=== PATIENT | male | born 1995 | race African-American/Black ===

== ENCOUNTER 2022-11-17 08:35 | Inpatient (IN) ==
[2022-11-17] MEDS ORDERED: MULTI-VITAMIN INFUSION 10 ML, THIAMINE HCL 100 MG, FOLIC ACID 1 MG in SODIUM CHLORIDE 0... IV ONE (09:10)
[2022-11-17] MEDS ORDERED: LORazepam 2 MG/1 ML VIAL IV STA ×4 (09:10→12:35)
[2022-11-17] MEDS ORDERED: THIAMINE HCL 200 MG in SODIUM CHLORIDE 0.9% 50 ML IV STA (09:15)
--- NOTE | 2022-11-17 09:27 | Emergency Department Note ---
Impression & Plan Isopropyl alcohol poisoning, Alcohol withdrawal, Delirium tremens, Closed fracture nasal bone, Laceration of lip, Laceration of elbow, right ED Provider Note NAME: JASON MCARTHUR AGE: 27 SEX: M ARRIVES VIA: Ambulance INFORMANT: Patient ED PROVIDER(S): Onofre Florentino MD CHIEF COMPLAINT: AMS PLAN: Disposition: Admit MEDICAL DECISION MAKING: The patient is a 27-year-old gentleman with a past medical history of anxiety/depression and prior suicide attempts remotely, history of alcohol abuse/dependence presents to the emergency department via EMS and then accom panied by his mother for evaluation of altered mental status this morning where they found him confused walking without any clothes with evidence of facial trauma. They report they did witness him fall to the ground and had shaking with drooling and was not responding initially. They report that he lost his job in September and up until that time had been known to drink alcohol heavily and frequently. He had subsequently moved in with his parents over the holidays and because of the holidays feel he probably had access to alcohol. They admit that since the holidays have ended he may no longer have access to alcohol. The mother did note that she found a bottle of rubbing alcohol in his room on the floor. When the patient was asked in the room if he drank rubbing alcohol he replied "probably". He would not answer questions of why he would have done this or if it was to hurt/kill himself versus keep withdrawal symptoms at bay. On arrival the patient is alert to voice with some inattention but can be redirected and will follow commands. He is afebrile with heart in the 90s and vital signs otherwise stable. He has notable facial trauma with swelling and contusion of the right side of the face. No overt malocclusion. There is a 3 cm laceration of the lateral aspect of the upper right lip that is not through and through. He is moving all extremities equally. He does have a 1 cm superficial laceration of the lower posterior right elbow. No surrounding edema or deformity. He does exhibits disconjugate gaze. As the patient was being evaluated he was noticed to have increasing delirium and suspicion for alcohol withdrawal and was given 1mg and 2mg of Ativan. 130mg of Phenobarbital for severe/refractory withdrawal. Chest x-ray negative for acute cardiopulmonary process. CT of the head negative for acute traumatic injury. CT of the face notes a right nasal bone fracture and otherwise no additional traumatic findings. WBC 18K nonspecific without significant left shift. H/H and platelets within normal limits. VBG is unremarkable, within normal limits. Chemistry without metabolic acidosis with normal anion gap of 10 and bicarbonate of 23. Osmolality was noted to be 335 with osmolar gap calculated to be 50 consistent with suspected isopropyl alcohol overdose. CPK within normal limits. High- sensitivity troponin 2.4. Lipase within normal limits. APAP and salicylates were undetectable. Medical alcohol was undetectable. Case was reviewed with the [facility] and agrees with treatment thus far and supportive care. Given the patient's normal anion gap without metabolic acidosis no indication for empiric treatment for possible methanol or ethylene glycol ingestion as patient's presentation is consistent with isolated isopropyl overdose. Of note, appreciate case management assistance who met with the patient's mother and expressed concern for the patient's safety and recent frequent comments of suicidal ideation with a history of suicide attempt in the past. Given the patient would not explain why he ingested isopropyl alcohol in the setting of his prior mental health concerns once the patient is medically cleared he will require more thorough psychiatric evaluation. 302 petition was documented. Case was discussed with Darin Allen, with Dr. Justen martinez who will evaluate the patient for admission. Triage Nursing notes reviewed and agree them. Prior medical records reviewed Vital Signs: reviewed Differential diagnosis: Overdose, toxicologic, infection, hypoglycemia, electrolyte abnormalities, cardiac sources, intracerebral event, neurologic, trauma, as well as other pathologies. ER treatment provided: See below. Diagnostics interpreted by me: ECG: Sinus tachycardia, 124 bpm, no ectopy, no overt ST elevation or depression, QTC 462, QRS 84. Cardiac Monitoring: An order for continuous cardiac monitoring was placed and demonstrated sinus tachycardia, 124 bpm, no ectopy. Laboratory studies: See below Imaging studies: See below Consultation(s): Poison Control Center Case was discussed with Darin Allen, with Dr. Justen martinez who will evaluate the patient for admission. HPI: The patient is a 27-year-old gentleman with a past medical history of anxiety/depression and prior suicide attempts remotely, history of alcohol abuse/dependence presents to the emergency department via EMS and then accompanied by his mother for evaluation of altered mental status this morning where they found him confused walking without any clothes with evidence of facial trauma. They report they did witness him fall to the ground and had shaking with drooling and was not responding initially. They report that he lost his job in September and up until that time had been known to drink alcohol heavily and frequently. He had subsequently moved in with his parents over the holidays and because of the holidays feel he probably had access to alcohol. They admit that since the holidays have ended he may no longer have access to alcohol. The mother did note that she found a bottle of rubbing alcohol in his room on the floor. When the patient was asked in the room if he drank rubbing alcohol he replied "probably". He would not answer questions of why he would have done this or if it was to hurt/kill himself versus keep withdrawal symptoms at bay. ROS: See above HPI for pertinent positives & negatives. A total of 10 systems reviewed and were otherwise negative. VITALS:See Below PHYSICAL EXAMINATION: GENERAL: Awake, alert, to voice. Somnolent-appearing. HENT: Normocephalic, Notable facial trauma with edema and contusion of the right side of the face. No overt malocclusion. 1.5 cm laceration of the lateral aspect of the upper right lip approaching marina border that is not through and through Oropharynx unremarkable. EYES: Normal conjunctiva. Sclera non-icteric. Bilateral nystagmus. Pupil midrange and reactive bilaterally. NECK: Supple. No nuchal rigidity. FROM. No JVD. RESPIRATORY: Clear to auscultation. CARDIAC: Regular rate, normal rhythm. Extremities warm and well perfused. Pulses equal. ABDOMEN: Soft, non-distended. No tenderness to palpation. No rebound or gua rding. No masses. RECTAL: Deferred. MUSCULOSKELETAL: Chest examination reveals no tenderness. The back is symmetrical on inspection without obvious abnormality. There is no CVA tenderness to palpation. No joint edema. LOWER EXTREMITIES: Calves are equal size bilaterally and non-tender. No edema. No discoloration. NEURO: Inattention but can be redirected and will follow commands. Moving all extremities equally. Disconjugate gaze. SKIN: No rash or jaundice noted. He does have a 1.25 cm laceration of the lower posterior right elbow. No surrounding edema or deformity. ED COURSE: Procedure: Laceration repair per YOU Bamat's documentation. Critical Care: I have personally spent greater than 75 minutes of critical care time in the direct management of this patient. This includes bedside care, interpretation of diagnostic studies, and testing, discussion with consultants, patient, and family members, and other required patient management activities. This 75 min utes is in excess of all separately billable procedures. Onofre Florentino MD Past Med/Surg History Medical History Alcohol abuse History of nicotine vaping History of tobacco abuse Insomnia Major depression, recurrent, chronic Seasonal allergic rhinitis Suicidal ideation Suicide attempt Surgical History Surgical history unknown Family History Other Family history non-contributory Social History Smoking Status: Current some day smoker Hx Alcohol Use: Yes Alcohol Intake Frequency: 4 or More x per/Week Preferred Language: Estonian Current Living Situation: Parent current occupational status: previously employed Feels Safe at Home: Yes Allergies Allergies Allergy/AdvReac Type Severity Reaction Status Date / Time shellfish derived Allergy Severe Anaphylaxis Verified 11/17/22 14:03 Home Meds Home Medications Medication Instructions Recorded Confirmed No Known Home Medications 11/17/22 11/17/22 Results & Data (ED) Vital Signs Vital Signs - 24 hr 11/17/22 08:31 11/17/22 08:47 11/17/22 08:47 Temperature 36.6 C Temperature Source Temporal Artery Scan Pulse Rate 93 H Pulse Rate [Apical] 99 H Pulse Rate from SpO2 Sensor Respiratory Rate 16 16 Blood Pressure 139/86 Blood Pressure [Left Arm] 139/86 Blood Pressure Mean 103 Blood Pressure Mean [Left Arm] 103 Pulse Oximetry 97 97 Oxygen Delivery Method Room Air Sepsis Recent Fever Within 48 Hours Yes Sepsis New/Unexplained Change in Mental Status N/A Sepsis Action Taken by Nursing No Action Required 11/17/22 08:40 11/17/22 08:45 11/17/22 09:00 Temperature Temperature Source Pulse Rate 124 H 120 H 96 H Pulse Rate [Apical] Pulse Rate from SpO2 Sensor 121 H 97 H Respiratory Rate 19 13 22 Blood Pressure Blood Pressure [Left Arm] Blood Pressure Mean Blood Pressure Mean [Left Arm] Pulse Oximetry 99 97 Oxygen Delivery Method Sepsis Recent Fever Within 48 Hours Sepsis New/Unexplained Change in Mental Status Sepsis Action Taken by Nursing 11/17/22 09:15 11/17/22 09:46 11/17/22 10:00 Temperature Temperature Source Pulse Rate 135 H 115 H Pulse Rate [Apical] Pulse Rate from SpO2 Sensor 137 H 108 H 116 H Respiratory Rate 14 16 Blood Pressure Blood Pressure [Left Arm] Blood Pressure Mean Blood Pressure Mean [Left Arm] Pulse Oximetry 99 97 97 Oxygen Delivery Method Sepsis Recent Fever Within 48 Hours Sepsis New/Unexplained Change in Mental Status Sepsis Action Taken by Nursing 11/17/22 10:12 11/17/22 10:12 11/17/22 10:15 Temperature Temperature Source Pulse Rate 117 H 113 H Pulse Rate [Apical] Pulse Rate from SpO2 Sensor 112 H Respiratory Rate 18 4 L Blood Pressure 120/74 Blood Pressure [Left Arm] Blood Pressure Mean 89 Blood Pressure Mean [Left Arm] Pulse Oximetry 97 Oxygen Delivery Method Sepsis Recent Fever Within 48 Hours Sepsis New/Unexplained Change in Mental Status Sepsis Action Taken by Nursing 11/17/22 10:45 11/17/22 11:00 11/17/22 11:00 Temperature Temperature Source Pulse Rate 117 H 117 H Pulse Rate [Apical] Pulse Rate from SpO2 Sensor 117 H 117 H Respiratory Rate 20 0 L Blood Pressure 113/54 L Blood Pressure [Left Arm] Blood Pressure Mean 73 Blood Pressure Mean [Left Arm] Pulse Oximetry 99 99 Oxygen Delivery Method Sepsis Recent Fever Within 48 Hours Sepsis New/Unexplained Change in Mental Status Sepsis Action Taken by Nursing 11/17/22 11:15 11/17/22 11:30 11/17/22 11:30 Temperature Temperature Source Pulse Rate 119 H 150 H Pulse Rate [Apical] Pulse Rate from SpO2 Sensor 118 H 118 H Respiratory Rate 0 L 22 Blood Pressure 111/70 Blood Pressure [Left Arm] Blood Pressure Mean 83 Blood Pressure Mean [Left Arm] Pulse Oximetry 100 95 Oxygen Delivery Method Sepsis Recent Fever Within 48 Hours Sepsis New/Unexplained Change in Mental Status Sepsis Action Taken by Nursing 11/17/22 11:34 11/17/22 11:34 11/17/22 11:36 Temperature Temperature Source Pulse Rate 164 H Pulse Rate [Apical] Pulse Rate from SpO2 Sensor 166 H Respiratory Rate 20 Blood Pressure 149/82 H 126/96 Blood Pressure [Left Arm] Blood Pressure Mean 104 106 Blood Pressure Mean [Left Arm] Pulse Oximetry 95 Oxygen Delivery Method Sepsis Recent Fever Within 48 Hours Sepsis New/Unexplained Change in Mental Status Sepsis Action Taken by Nursing 11/17/22 11:36 11/17/22 11:45 11/17/22 11:45 Temperature Temperature Source Pulse Rate 158 H 132 H Pulse Rate [Apical] Pulse Rate from SpO2 Sensor 158 H 133 H Respiratory Rate 22 26 H Blood Pressure 134/86 Blood Pressure [Left Arm] Blood Pressure Mean 102 Blood Pressure Mean [Left Arm] Pulse Oximetry 100 91 Oxygen Delivery Method Sepsis Recent Fever Within 48 Hours Sepsis New/Unexplained Change in Mental Status Sepsis Action Taken by Nursing Laboratory Data Attestation: I reviewed the patient's lab results. 11/17/22 09:00 11/17/22 09:00 Lab Results 11/17/22 11/17/22 11/17/22 Range/Units 09:00 09:00 09:00 WBC 18.04 H (4.8-10.8) K/ul RBC 4.77 (4.63-6.08) M/uL Hgb 15.3 (14.0-18.0) g/dl Hct 43.3 (40.1-51.0) % MCV 90.8 (80.0-100.0) fL MCH 32.1 (25.0-34.0) pg MCHC 35.3 (32.0-36.0) g/dL RDW Std Deviation 38.0 (36.4-46.3) fL RDW Coeff of Janie 11.4 L (11.5-14.5) % Plt Count 263 (130-400) K/uL MPV 10.5 (9.4-12.4) fL Immature Gran % (Auto) 0.5 % Neut % (Auto) 89.7 % Lymph % (Auto) 4.1 % Floyd % (Auto) 5.5 % Eos % (Auto) 0.0 % Baso % (Auto) 0.2 % Neut # (Auto) 16.17 H (1.4-6.5) K/uL Lymph # (Auto) 0.74 L (1.2-3.4) K/uL Floyd # (Auto) 1.00 H (0.24-0.82) K/uL Eos # (Auto) 0.00 (0-0.50) K/uL Baso # (Auto) 0.04 (0-0.2) K/uL Immature Gran # (Auto) 0.09 H (0.00-0.02) K/uL PT 11.7 (9.0-12.0) Seconds INR 1.1 (0.9-1.1) VBG pH (7.36-7.41) VBG pCO2 (38-50) mmHg VBG pO2 mmHg VBG HCO3 mmol/L VBG O2 Saturation % VBG Base Excess mEq/L Sodium 137 (136-145) mmol/L Potassium 3.4 L (3.5-5.1) mmol/L Chloride 104 (98-107) mmol/L Carbon Dioxide 23 (21-32) mmol/L Anion Gap 10 (3-11) BUN 10 (6-23) mg/dl Creatinine 0.88 (0.6-1.4) mg/dl Est Cr Clr Drug Dosing 96.1 ml/min Est GFR ( Amer) 137.4 ml/min Est GFR (Non-Af Amer) 118.6 ml/min BUN/Creatinine Ratio 11.4 (10-20) Glucose 136 H (70-99(Fasting)) mg/dl Osmolality (280-300) mOsm/kg Calcium 9.2 (8.5-10.1) mg/dl Magnesium 1.9 (1.7-2.4) mg/dl Total Bilirubin 0.3 (0.2-1.0) mg/dl AST 22 (13-39) U/L ALT 18 (7-52) U/L Alkaline Phosphatase 56 (34-104) U/L Total Creatine Kinase 117 (30-223) U/L Troponin I High Sens 2.4 (0-20) pg/ml Total Protein 7.6 (6.0-8.3) gm/dl Albumin 4.5 (3.4-5.0) gm/dl Globulin 3.1 (2.5-4.0) gm/dl Albumin/Globulin Ratio 1.5 (0.9-2) Lipase 49 (11-82) U/L Salicylates (3.0-30) mg/dl Acetaminophen (10-30) ug/ml Ethyl Alcohol mg/dL (<10.0) mg/dl 11/17/22 11/17/22 11/17/22 Range/Units 09:00 09:00 09:00 WBC (4.8-10.8) K/ul RBC (4.63-6.08) M/uL Hgb (14.0-18.0) g/dl Hct (40.1-51.0) % MCV (80.0-100.0) fL MCH (25.0-34.0) pg MCHC (32.0-36.0) g/dL RDW Std Deviation (36.4-46.3) fL RDW Coeff of Janie (11.5-14.5) % Plt Count (130-400) K/uL MPV (9.4-12.4) fL Immature Gran % (Auto) % Neut % (Auto) % Lymph % (Auto) % Floyd % (Auto) % Eos % (Auto) % Baso % (Auto) % Neut # (Auto) (1.4-6.5) K/uL Lymph # (Auto) (1.2-3.4) K/uL Floyd # (Auto) (0.24-0.82) K/uL Eos # (Auto) (0-0.50) K/uL Baso # (Auto) (0-0.2) K/uL Immature Gran # (Auto) (0.00-0.02) K/uL PT (9.0-12.0) Seconds INR (0.9-1.1) VBG pH (7.36-7.41) VBG pCO2 (38-50) mmHg VBG pO2 mmHg VBG HCO3 mmol/L VBG O2 Saturation % VBG Base Excess mEq/L Sodium (136-145) mmol/L Potassium (3.5-5.1) mmol/L Chloride (98-107) mmol/L Carbon Dioxide (21-32) mmol/L Anion Gap (3-11) BUN (6-23) mg/dl Creatinine (0.6-1.4) mg/dl Est Cr Clr Drug Dosing ml/min Est GFR ( Amer) ml/min Est GFR (Non-Af Amer) ml/min BUN/Creatinine Ratio (10-20) Glucose (70-99(Fasting)) mg/dl Osmolality 335 H (280-300) mOsm/kg Calcium (8.5-10.1) mg/dl Magnesium (1.7-2.4) mg/dl Total Bilirubin (0.2-1.0) mg/dl AST (13-39) U/L ALT (7-52) U/L Alkaline Phosphatase (34-104) U/L Total Creatine Kinase (30-223) U/L Troponin I High Sens (0-20) pg/ml Total Protein (6.0-8.3) gm/dl Albumin (3.4-5.0) gm/dl Globulin (2.5-4.0) gm/dl Albumin/Globulin Ratio (0.9-2) Lipase (11-82) U/L Salicylates < 3.0 L (3.0-30) mg/dl Acetaminophen < 3 L (10-30) ug/ml Ethyl Alcohol mg/dL < 10.0 (<10.0) mg/dl 11/17/22 Range/Units 10:09 WBC (4.8-10.8) K/ul RBC (4.63-6.08) M/uL Hgb (14.0-18.0) g/dl Hct (40.1-51.0) % MCV (80.0-100.0) fL MCH (25.0-34.0) pg MCHC (32.0-36.0) g/dL RDW Std Deviation (36.4-46.3) fL RDW Coeff of Janie (11.5-14.5) % Plt Count (130-400) K/uL MPV (9.4-12.4) fL Immature Gran % (Auto) % Neut % (Auto) % Lymph % (Auto) % Floyd % (Auto) % Eos % (Auto) % Baso % (Auto) % Neut # (Auto) (1.4-6.5) K/uL Lymph # (Auto) (1.2-3.4) K/uL Floyd # (Auto) (0.24-0.82) K/uL Eos # (Auto) (0-0.50) K/uL Baso # (Auto) (0-0.2) K/uL Immature Gran # (Auto) (0.00-0.02) K/uL PT (9.0-12.0) Seconds INR (0.9-1.1) VBG pH 7.38 (7.36-7.41) VBG pCO2 41 (38-50) mmHg VBG pO2 60 mmHg VBG HCO3 24 mmol/L VBG O2 Saturation 90.7 % VBG Base Excess -0.8 mEq/L Sodium (136-145) mmol/L Potassium (3.5-5.1) mmol/L Chloride (98-107) mmol/L Carbon Dioxide (21-32) mmol/L Anion Gap (3-11) BUN (6-23) mg/dl Creatinine (0.6-1.4) mg/dl Est Cr Clr Drug Dosing ml/min Est GFR ( Amer) ml/min Est GFR (Non-Af Amer) ml/min BUN/Creatinine Ratio (10-20) Glucose (70-99(Fasting)) mg/dl Osmolality (280-300) mOsm/kg Calcium (8.5-10.1) mg/dl Magnesium (1.7-2.4) mg/dl Total Bilirubin (0.2-1.0) mg/dl AST (13-39) U/L ALT (7-52) U/L Alkaline Phosphatase (34-104) U/L Total Creatine Kinase (30-223) U/L Troponin I High Sens (0-20) pg/ml Total Protein (6.0-8.3) gm/dl Albumin (3.4-5.0) gm/dl Globulin (2.5-4.0) gm/dl Albumin/Globulin Ratio (0.9-2) Lipase (11-82) U/L Salicylates (3.0-30) mg/dl Acetaminophen (10-30) ug/ml Ethyl Alcohol mg/dL (<10.0) mg/dl Administered Medications Parenteral Electrolytes (Normosol-R) 1,000 mls @ 100 mls/hr IV .Q10H LUCIE Stop: 12/17/22 15:59 Last Admin: 11/17/22 16:32 Dose: 100 mls/hr Documented By: WRS Famotidine 20 mg/ Syringe 5 mls @ 2.5 mls/min IV Q12 LUCIE Stop: 12/17/22 20:59 Last Admin: 11/17/22 21:42 Dose: 2.5 mls/min Documented By: TP Discontinued Medications Diphtheria/Pertussis/Tetanus Vacc (Diphtheria/Tetanus/Pertussis 0.5 Ml Syr/Vial) 0.5 ml IM .ONCE ONE Stop: 11/17/22 11:16 Last Admin: 11/17/22 12:21 Dose: 0.5 ml Documented By: SNEHA Multivitamins 10 ml/ Thiamine HCl 100 mg/ Folic Acid 1 mg/Sodium Chloride 1,011.2 mls @ 1,011.2 mls/hr IV .Q1H ONE Stop: 11/17/22 10:09 Last Infusion: 11/17/22 11:45 Dose: 0 mls/hr Documented By: Admin: 11/17/22 10:13 Dose: 1,011.2 mls/hr Documented By: ANDRWE Thiamine HCl 200 mg/ Sodium (Chloride) 52 mls @ 208 mls/hr IV NOW STA Stop: 11/17/22 09:16 Last Infusion: 11/17/22 12:57 Dose: 0 mls/hr Documented By: Admin: 11/17/22 12:37 Dose: 208 mls/hr Documented By: SNEHA Potassium Acetate (Potassium Acetate/Nss) 10 meq in 105 mls @ 105 mls/hr IV Q1H LUCIE Stop: 11/17/22 14:44 Last Admin: 11/17/22 16:18 Dose: Not Given Documented By: IGNACIA Sodium Chloride (Nss 1000ml) 1,000 mls @ 999 mls/hr IV .Q1H1M LUCIE Stop: 11/17/22 13:45 Last Infusion: 11/17/22 15:23 Dose: 0 mls/hr Documented By: Admin: 11/17/22 14:22 Dose: 999 mls/hr Documented By: SNEHA Lidocaine HCl (Xylocaine 1%/Sod Bicarb 20 Ml Vial) 20 ml INFIL NOW ONE Stop: 11/17/22 11:16 Last Admin: 11/17/22 12:21 Dose: 20 ml Documented By: SNEHA Lorazepam (Lorazepam 2 Mg/1 Ml Vial) 1 mg IV NOW STA Stop: 11/17/22 09:11 Last Admin: 11/17/22 09:45 Dose: 1 mg Documented By: AGUEDA Lorazepam (Lorazepam 2 Mg/1 Ml Vial) 2 mg IV NOW STA Stop: 11/17/22 10:15 Last Admin: 11/17/22 10:25 Dose: 2 mg Documented By: AGUEDA Lorazepam (Lorazepam 2 Mg/1 Ml Vial) 2 mg IV NOW STA Stop: 11/17/22 10:24 Last Admin: 11/17/22 11:40 Dose: Not Given Documented By: AGUEDA Lorazepam (Lorazepam 2 Mg/1 Ml Vial) 1 mg IV ONE PRN; Protocol PRN Reason: EtoH Withdrawal AWSS 6,7,8,9,10 Last Admin: 11/17/22 11:40 Dose: 1 mg Documented By: SNEHA Lorazepam (Lorazepam 2 Mg/1 Ml Vial) Confirm Administered Dose 2 mg .ROUTE .STK- MED ONE Stop: 11/17/22 12:31 Last Admin: 11/17/22 12:47 Dose: Not Given Documented By: SNEHA Lorazepam (Lorazepam 2 Mg/1 Ml Vial) 2 mg IV NOW STA Stop: 11/17/22 12:36 Last Admin: 11/17/22 16:06 Dose: Not Given Documented By: IGNACIA Phenobarbital Sodium (Phenobarbital Sodium 65 Mg/Ml Vial) 130 mg IV NOW STA Stop: 11/17/22 12:29 Last Admin: 11/17/22 16:06 Dose: Not Given Documented By: IGNACIA Imaging Data Radiologist's Impression: Chest X-Ray 11/17/22 09:10 XR chest 1V portable CLINICAL HISTORY: overdose COMPARISON STUDY: No previous studies for comparison. FINDINGS: Exam is compromised given difficulty positioning. Lung volumes are normal. Lungs are clear. There is no pneumothorax or pleural effusion. Cardiac size is normal. Mediastinal contours are normal. There is no evidence for pulmonary edema. IMPRESSION: No acute cardiopulmonary findings. ACT 112: Negative or not required by law. Electronically signed by: Lavon Clark M.D. 11/17/2022 10:[address] 11/17/22 09:14 CT OF THE CERVICAL SPINE WITHOUT CONTRAST CLINICAL HISTORY: AMS pain COMPARISON STUDY: No previous studies for comparison. TECHNIQUE: Helical axial images of the cervical spine were obtained without IV contrast. Sagittal and coronal reconstructions were viewed. Automated exposure control was utilized for the study. A dose lowering technique was utilized adhering to the principles of ALARA. FINDINGS: Alignment of the cervical spine is anatomic. Vertebral body heights are maintained. No acute cervical spine fracture or subluxation is present. There is no prevertebral edema. Facet joints are intact. IMPRESSION: No acute cervical spine fracture or subluxation. ACT 112: Negative or not required by law. Electronically signed by: Lavon Clark M.D. 11/17/2022 11:[address] 11/17/22 09:14 CT OF THE HEAD WITHOUT CONTRAST CLINICAL HISTORY: Altered mental status. COMPARISON STUDY: No previous studies for comparison. TECHNIQUE: Helical axial images of the head were obtained without IV contrast. Automated exposure control was utilized for the study. A dose lowering t echnique was utilized adhering to the principles of ALARA. FINDINGS: No acute intracranial hemorrhage, midline shift or mass effect is present. The ventricular system is unremarkable. The basal cisterns are patent. No extra-axial collections are present. There are no findings to suggest acute dural sinus thrombosis or acute territorial infarct. No significant calvarial abnormalities are present. Visualized portions of the sinuses and mastoid air cells are clear. Right nasal contusion is present. There is an acute fracture of the right nasal bone. This is better depicted on the maxillofacial CT. IMPRESSION: 1. No acute intracranial findings. 2. No acute calvarial fracture. 3. Right facial contusion. Acute right nasal bone fracture. ACT 112: Negative or not required by law. Electronically signed by: Lavon Clark M.D. 11/17/2022 11:[address] 11/17/22 09:15 CT facial bones wo con CLINICAL HISTORY: trauma TECHNIQUE: Multidetector row helical CT of the maxillofacial bones was performed without administration of intravenous contrast, and processed with bone and soft tissue algorithms. Coronal and sagittal reformations were obtained. Automated dose lowering techniques and/or adjustment according to patient size were utilized for this exam. CT DOSE: 1248.17 mGy.cm Comparison: None available at the time of this dictation. FINDINGS: There is an acute fracture of the right nasal bone. Soft tissue swelling is seen. The mandible is intact. The temporomandibular joints are anatomically aligned. Pterygoid plates are intact. Zygomatic arches are intact. The globes are normal and symmetric, without proptosis, obvious disruption or lens dislocation. There is no orbital radiopaque foreign body. The orbital nova are intact. The retrobulbar fat is without evidence of disruption. Extraocular muscles are normal and symmetric. Optic nerve sheath complexes are normal in course and caliber. There is a fracture of the right nasal bone with surrounding soft tissue swelling. IMPRESSION: No acute facial fracture. ACT 112: Negative or not required by law. Electronically signed by: Ian Thomas M.D. 11/17/2022 11:10 AM Discharge Plan Visit Data Chief Complaint: Confusion ED Provider: Onofre Florentino Discharge Problem: Isopropyl alcohol poisoning, Alcohol withdrawal, Delirium tremens, Closed fracture nasal bone, Laceration of lip, Laceration of elbow, right Patient Disposition: Admitted As Inpatient Discharge Instructions Interventions: ED Discharge Assessment Last Done: 11/17/22 14:47
[2022-11-17 09:28] LABS: Basophils # (auto) 0.04 K/uL (0-0.2); Basophils % (auto) 0.2 %; Hematocrit (blood only) 43.3 % (40.1-51.0); Hemoglobin 15.3 g/dl (14.0-18.0); Immature Granulocytes # (auto) 0.09 K/uL (0.00-0.02); Immature Granulocytes % (auto) 0.5 %; Lymphocytes # (auto) 0.74 K/uL (1.2-3.4); Lymphocytes % (auto) 4.1 %; Mean Corpuscular Hemoglobin 32.1 pg (25.0-34.0); Mean Corpuscular Hgb Conc 35.3 g/dL (32.0-36.0); Mean Corpuscular Volume 90.8 fL (80.0-100.0); Mean Platelet Volume 10.5 fL (9.4-12.4); Monocytes % (auto) 5.5 %; Neutrophils # (auto) 16.17 K/uL (1.4-6.5); Neutrophils % (auto) 89.7 %; Platelet Count 263 K/uL (130-400); RDW Coefficient of Variation 11.4 % (11.5-14.5); Red Blood Count 4.77 M/uL (4.63-6.08); White Blood Count 18.04 K/ul (4.8-10.8)
[2022-11-17 09:41] LABS: INR 1.1 (0.9-1.1); Prothrombin Time 11.7 Seconds (9.0-12.0)
[2022-11-17 09:53] LABS: Acetaminophen < 3 ug/ml (10-30); Salicylate < 3.0 mg/dl (3.0-30)
[2022-11-17 10:10] LABS: Albumin Globulin Ratio 1.5 (0.9-2); Albumin Level 4.5 gm/dl (3.4-5.0); BUN Creatinine Ratio 11.4 (10-20); Bilirubin,Total 0.3 mg/dl (0.2-1.0); Calcium 9.2 mg/dl (8.5-10.1); Creatinine Clr Calc Pharmacy 96.1 ml/min; Est GFR (African American) 137.4 ml/min; Est GFR (Non-African American) 118.6 ml/min; Globulin 3.1 gm/dl (2.5-4.0); Magnesium 1.9 mg/dl (1.7-2.4); Potassium 3.4 mmol/L (3.5-5.1); Total Protein 7.6 gm/dl (6.0-8.3)
[2022-11-17 10:11] LABS: Troponin I High Sensitivity 2.4 pg/ml (0-20)
--- NOTE | 2022-11-17 10:11 | XRay Report ---
XR chest 1V portable CLINICAL HISTORY: overdose COMPARISON STUDY: No previous studies for comparison. FINDINGS: Exam is compromised given difficulty positioning. Lung volumes are normal. Lungs are clear. There is no pneumothorax or pleural effusion. Cardiac size is normal. Mediastinal contours are ted l. There is no evidence for pulmonary edema. IMPRESSION: No acute cardiopulmonary findings. ACT 112: Negative or not required by law. Electronically signed by: Lavon Clark M.D. 11/17/2022 10:10 AM
[2022-11-17 10:27] LABS: Base Excess VBG -0.8 mEq/L; HCO3 VBG 24 mmol/L; Oxygen Saturation VBG 90.7 %; PCO2 VBG 41 mmHg (38-50); PO2 VBG 60 mmHg; pH VBG 7.38 (7.36-7.41)
--- NOTE | 2022-11-17 11:03 | CT Scan Report ---
CT OF THE HEAD WITHOUT CONTRAST CLINICAL HISTORY: Altered mental status. COMPARISON STUDY: No previous studies for comparison. TECHNIQUE: Helical axial images of the head were obtained without IV contrast. Automated exposure con trol was utilized for the study. A dose lowering technique was utilized adhering to the principles o f ALARA. FINDINGS: No acute intracranial hemorrhage, midline shift or mass effect is present. The ventricular system is unremarkable. The basal cisterns are patent. No extra-axial collections are present. There are no findings to suggest acute dural sinus thrombosis or acute territorial infarct. No significant calvarial abnormalities are present. Visualized portions of the sinuses and mastoid air cells are ender ar. Right nasal contusion is present. There is an acute fracture of the right nasal bone. This is bet ter depicted on the maxillofacial CT. IMPRESSION: 1. No acute intracranial findings. 2. No acute calvarial fracture. 3. Right facial contusion. Acute right nasal bone fracture. ACT 112: Negative or not required by law. Electronically signed by: Lavon Clark M.D. 11/17/2022 11:02 AM
--- NOTE | 2022-11-17 11:11 | CT Scan Report ---
CT facial bones wo con CLINICAL HISTORY: trauma TECHNIQUE: Multidetector row helical CT of the maxillofacial bones was performed without administrati on of intravenous contrast, and processed with bone and soft tissue algorithms. Coronal and sagittal reformations were obtained. Automated dose lowering techniques and/or adjustment according to patient size were utilized for this exam. CT DOSE: 1248.17 mGy.cm Comparison: None available at the time of this dictation. FINDINGS: There is an acute fracture of the right nasal bone. Soft tissue swelling is seen. The mandible is int act. The temporomandibular joints are anatomically aligned. Pterygoid plates are intact. Zygomatic a rches are intact. The globes are normal and symmetric, without proptosis, obvious disruption or lens dislocation. Ther e is no orbital radiopaque foreign body. The orbital nova are intact. The retrobulbar fat is without evidence of disruption. Extraocular muscles are normal and symmetric. Optic nerve sheath complexes are normal in course and caliber. There is a fracture of the right nasal bone with surrounding soft tissue swelling. IMPRESSION: No acute facial fracture. ACT 112: Negative or not required by law. Electronically signed by: Ian Thomas M.D. 11/17/2022 11:10 AM
--- NOTE | 2022-11-17 11:12 | CT Scan Report ---
CT OF THE CERVICAL SPINE WITHOUT CONTRAST CLINICAL HISTORY: AMS pain COMPARISON STUDY: No previous studies for comparison. TECHNIQUE: Helical axial images of the cervical spine were obtained without IV contrast. Sagittal a nd coronal reconstructions were viewed. Automated exposure control was utilized for the study. A do se lowering technique was utilized adhering to the principles of ALARA. FINDINGS: Alignment of the cervical spine is anatomic. Vertebral body heights are maintained. No acut e cervical spine fracture or subluxation is present. There is no prevertebral edema. Facet joints are intact. IMPRESSION: No acute cervical spine fracture or subluxation. ACT 112: Negative or not required by law. Electronically signed by: Lavon Clark M.D. 11/17/2022 11:11 AM
[2022-11-17] MEDS ORDERED: DIPHTHERIA/TETANUS/PERTUSSIS 0.5mL SYR/VIAL (Age 7+yrs) IM ONE (11:15)
[2022-11-17] MEDS ORDERED: XYLOCAINE 1%/SOD BICARB 20 ML VIAL INFIL ONE (11:15)
[2022-11-17] MEDS ORDERED: LORazepam 2 MG/1 ML VIAL IV PRN ×4 (11:21→15:49)
[2022-11-17] MEDS ORDERED: MAGNESIUM HYDROXIDE SUSP 30 ML UDC PO PRN (11:48)
[2022-11-17] MEDS ORDERED: ALUMINUM/MAGNESIUM SUSP 30 ML UDC PO PRN (11:48)
[2022-11-17] MEDS ORDERED: POLYETHYLENE (MIRALAX) 17 GM PACK PO PRN (11:48)
[2022-11-17] MEDS ORDERED: ONDANSETRON INJ 2 MG/ML 2 ML VIAL IV PRN (11:48)
[2022-11-17] MEDS ORDERED: PHENobarbital sodium 65 MG/ML VIAL IV STA ×2 (11:50→12:28)
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
[2022-11-17] MEDS ORDERED: LORazepam 2 MG/1 ML VIAL ONE (12:30)
--- NOTE | 2022-11-17 12:40 | Emergency Department Note ---
ED Visit Note Patient was seen and evaluated by Dr. Florentino. I was asked to evaluate the patient's right upper lip wound and right arm wound. Patient at this time is experiencing a state of altered mental status. Implied consent utilized. Patient does have 2 lacerations which would benefit from repair. The first of which is overlying the right upper lip in the horizontal plane that is overlying the vermilion border. It is approximately 1.5 cm in length. It is not communicating with the intraoral mucosa. This does involve the dry mucosa and integument just superior to the vermilion. No intraoral component as noted above. 2 cc of 1% lidocaine without epinephrine was used to anesthetize the right upper lip laceration. The wound was cleansed and prepped in the typical sterile fashion utilizing normal saline and ChloraPrep noting his allergy to shellfish in the event that iodine could also be a potential allergy as he is not able to confirm given his current mental state. The wound was sterilely draped. Once proper anesthetization was established, the wound was further examined and demonstrated repairable laceration without foreign body or deep structure injury. The wound was copiously irrigated with normal saline. The wound was closed using 5 simple, 6-0 nylon sutures with the wound edges being well approximated. Patient tolerated the procedure well. No complications were met. The wound was cleansed and dressed with a Bacitracin dressing. Attention was then turned to the right arm wound. The laceration is on the right upper extremity on the medial aspect of the right elbow region. Gloves were changed into a new set of sterile gloves. A new suture material was obtained. Area was sterilely draped. The region was anesthetized utilizing 3 cc of 1% buffered lidocaine without epinephrine. The wound was cleansed and prepped in the typical sterile fashion utilizing normal saline and ChloraPrep noting his allergy to shellfish in the event that iodine could also be a potential allergy as he is unable to confirm given his current mental state. Wound was sterilely draped. Once proper anesthetization was established, the w ound was further examined and demonstrated repairable laceration without foreign body or deep structure injury. No evidence of bony involvement. Wound measured approximately 1.25 cm in length. The wound was copiously irrigated with normal saline. The wound was closed utilizing 4, 4-0 nylon sutures with the wound edges being well approximated. No complications were met. The wound was cleansed and dressed with a bacitracin dressing. I recommend suture removal for the lip in 7 days. I recommend removal of sutures on the right upper extremity in about 12 days. Please refer to further documentation regarding his stay. .
[2022-11-17] MEDS ORDERED: SODIUM CHLORIDE 0.9% 1000ML 1,000 ML IV SCH (12:45)
[2022-11-17] MEDS ORDERED: POTASSIUM ACETATE/NSS 10 MEQ/105 ML BAG IV SCH (12:45)
[2022-11-17 13:52] LABS: Appearance Urine Clear (Clear); Bilirubin Urine Negative (Negative); Blood Urine Negative (Negative); Color Urine Yellow; Glucose Urine UA Negative (Negative); Ketones Urine Negative (Negative); Leukocyte Esterase Urine Negative (Negative); Nitrite Urine Negative (Negative); Protein Urine Negative (Negative); Specific Gravity Urine 1.008 (1.000-1.030); Urobilinogen Urine Negative (Negative)
--- NOTE | 2022-11-17 13:53 | Critical Care Consultation ---
Date of Consultation November 17, 2022 Assessment & Plan (1) Isopropyl alcohol poisoning: Reason Critically Ill: 27-year-old male presenting with altered mental status and possible seizure in the setting of likely isopropyl alcohol intoxication requiring close hemodynamic monitoring, laboratory evaluation, and neurological evaluations in the setting of atypical alcohol overdose. NEURO - * CAM ICU: POSITIVE * Altered Mental Status: * Likely 2/2 Isopropyl EtOH overdose - patient found with mother's bottle of rubbing alcohol she uses for crafting. He admitted to drinking a "small bit." Reports he drank it to attempt to get drunk. Denies using any other medicaions or ingestions otherwise. * Osmolar gap calculated at 50.0 mOsm/kg - suggestive of significant osmolar gap. This could certainly be related to recent Isopropyl EtOH use. Thankfully w/o other significant laboratory deragements. * CT Head/C-spine w/o acute findings. * Poison control contacted. Recommend conservative management. * Received several doses of IV Ativan 2/2 agitation. * Concerns initially for Delirium tremens in the setting of known heavy EtOH abuse. * Will add AWSS scale w/ Ativan for now. * Consider Precedex if management of agitation becomes an issue w/ Ativan alone. * Seizure precautions. * This could likely represent an acute encephalopathy in the setting of atypical EtOH overdose. Will see how he improves over the next several hour. PSYCH - * Multiple recent comments about suicidality. * Previous suicide attempt. * 302 petition on chart. * Will consult psych for inpatient placement when clinically appropriate. CARDIAC/VASCULAR - * Tachycardia: * In the setting of isopropyl EtoH overdose and agitation. * Rates improved when not agitated. * IVF for now. Not requiring rate control currently. * EKG: Sinus Tachycardia @ [address] elevations/T-wave changes noted. QTc 462 ms. Monitor on telemetry. RESPIRATORY - * No h/o pulmonary disease. * Saturating well on Room Air. GI/NUTRITION - * NPO while agitated * Prophylaxis: Famotidine RENAL/LYTES - * Hypokalemia: * Replace appropriately. * IVF: Normosol R @ 100 mL/hr - * No current concerns. * h/o Priapism * Avoid Trazodone ENDO - * No h/o DM or Thyroid Dz * BSGs per unit protocol. ISS --> gtt per unit policy. HEME - * Leukocytosis: * Likely 2/2 stress response w/ reported seizure like activity. ID - * No immediate concerns for infectious contribution at this time. LINES/IV ACCESS - * PIVs x2 DVT PROPHYLAXIS - * Hold for now w/ recent fall/facial trauma. Will see how he does with mental status over the next several hours. * SCDs I have personally spent 45 minutes of critical care time in the direct management of this patient. This is a life/limb threatening event. This includes time spent evaluating patient, direct bedside care, chart review, placing orders, interpretation of diagnostic studies, discussion with consultants, patient, and family members, as well as other required patient management activities. This time is exclusive of all separately billable procedures, and teaching time and separate from and in addition to any other critical care service time. Thank you for allowing us to participate in the care of this patient. Please refer to my attending physician's documentation for any further recommendations. (2) Altered mental status: (3) Suicidal ideation: (4) Closed fracture nasal bone: (5) Laceration of lip: (6) Laceration of elbow, right: Supervising Physician Co-Signing Physician Notes Patient seen and examined. EMR reviewed. Discussed with critical care nurse at bedside as well as interviewed the patient directly. Reviewed with critical care YOU and agree with assessment plan as noted. Patient was admitted to the ICU for follow-up of isopropyl alcohol ingestion and potential alcohol withdrawal. He is currently awake alert and conversant. He denies any suicidal ideation or homicidal ideation. He is hemodynamically stable. He denies any specific complaints currently. Will continue to observe on symptom dosed Ativan. No indication for Precedex and phenobarb or other adjuvants currently. Will require behavioral health evaluation once medically cleared, likely in a.m.. Patient did have an elevated white blood cell count of unclear etiology. Holding antibiotics unless the patient demonstrates evidence of fevers. He demonstrated no significant metabolic acidosis. Anticipate the patient can likely be dismissed from the ICU in the a.m. if he continues to do well. History of Present Illness Reason for Consultation: Isopropyl Alcohol Overdose, AMS Requesting Physician: CRISTINA Allen History of Present Illness Patient is a 27-year-old male with a significant past medical history of of anxiety, depression, suicidality with prior attempts, and alcohol abuse who presented to the emergency department today with concerns for likely isopropyl alcohol overdose. Mother reports the patient was acting off this morning and trashed the basement. She reports that it did not seem as though he was throwing things or smashing things in anger, but that he was falling all over. He was reportedly witnessed falling to the ground and shaking with drooling and an unresponsive state. Mother found a bottle of isopropyl alcohol in the gema nt's room. She reports that she had been using this for crafting and noticed that it was missing on Wednesday. Patient drinks alcohol heavily and typically resorts to high percentage alcohol beers. She reports that he had been drinking heavily over the holidays in relationship to his recent termination from employment as well as with his family present for the holidays. She states that he had not drank beer in approximately 7 days as his brother and father were not available to help purchase of alcohol. Mother reports that patient makes regular comments about how he is plotting how he would attempt to kill himself again.Mother reports that the only medications available in the house to him would be losartan as well as [id number] medications including aspirin, Tylenol, and acetaminophen. She reports that she briefly looked at the pill bottles and did not notice anything significantly out of place. Mother reports that there was no other access to any other forms of alcohol. She does not feel as though he had consumed any other agents. Upon evaluation in the emergency department, the patient has received multiple doses of Ativan secondary to agitation. He has a moderate leukocytosis which is likely demargination in the setting of stress. Mild hypokalemia. Mild elevation of serum awesome's. Tylenol and aspirin levels not elevated. Serum alcohol levels not elevated. Upon evaluation in the emergency department, the patient is somnolent and sleeping. He responds to stimuli, but falls back to sleep briefly. Patient admits to drinking "a small amount" of rubbing alcohol. He denies taking any other medications or drinking any other substances in an attempt to harm himself. Allergies Allergy/AdvReac Type Severity Reaction Status Date / Time shellfish derived Allergy Severe Anaphylaxis Verified 11/17/22 14:03 Home Medications Medication Instructions Recorded Confirmed Type No Known Home Medications 11/17/22 11/17/22 History Patient History Medical History (Updated 11/17/22 @ 15:52 by Barbra Campuzano DO) Alcohol abuse History of nicotine vaping History of tobacco abuse Insomnia Major depression, recurrent, chronic Seasonal allergic rhinitis Suicidal ideation Suicide attempt Surgical History (Updated 11/17/22 @ 15:52 by Barbra Campuzano DO) Surgical history unknown Family History Other Family history non-contributory Social History (Updated 11/17/22 @ 15:52 by Barbra Campuzano DO) Smoking Status: Current some day smoker Hx Alcohol Use: Yes Alcohol Intake Frequency: 4 or More x per/Week Preferred Language: Palestinian Communication Ability Comment: Unable to answer Current Living Situation: Parent current occupational status: previously employed Feels Safe at Home: Yes Assistive Devices Comment: Unable to answer Review of Systems Review of Systems: Limited secondary to patient's current mental status Physical Exam Physical Exam: VITAL SIGNS - Vital signs and nursing notes were reviewed. GENERAL - 27-year-old male appearing his stated age. Communicates well with provider and answers questions appropriately. SKIN - Gross examination of the entire body surface demonstrates swelling and dried blood to the RIGHT side of the face/jaw. HEAD - Normocephalic. Facial swelling/dried blood as above. EYES - pupils appear equal bilaterally. Patient otherwise not cooperative with exam. EARS - No deformities of external structures noted on gross examination bilaterally. No hemotympanum present. No tympanic perforation noted. Handle of malleus, umbo, cone of light, pars tensa/flaccid all easily visualized. NOSE - Midline and without cyanosis. No epistaxis or clear watery discharge noted. Septum midline without deviation. No septal hematoma noted. MOUTH/OROPHARYNX - Without perioral cyanosis. Good dentition noted. NECK - No tenderness to palpation over the cervical spinous processes. No cervical paraspinal muscle tenderness noted. LUNGS - Chest wall symmetric without accessory muscle use, intercostals retractions, or central cyanosis. Normal vesicular breath sounds CTA B/L. No wheezes, rales, or rhonchi appreciated. CARDIAC - RRR with S1/S2. No murmur, rubs, or gallops appreciated. ABDOMEN - Abdominal contour flat without pulsations or visible masses. BS normoactive all four quadrants. No rebound tenderness or guarding noted. No tenderness, palpable masses, hepatosplenomegaly, or ascites noted. EXTREMITIES - No gross deformities noted of the extremities. Dressing noted to the RIGHT arm. +3/5 radial and dorsalis pedis pulses palpated throughout. NEUROLOGIC - No focal neurological deficits noted. Unable to fully assess secondary to mental status. PSYCH - Somnolent. Awakes with stimuli. Intermittent episodes of lucidity. Results & Data Results & Data ([facility]) Vital Signs (Past 12 Hours) Vital Signs Temp Pulse Pulse Resp BP BP Pulse Ox 11/17/22 11:45 132 H 26 H 91 11/17/22 11:45 134/86 11/17/22 11:36 158 H 22 100 11/17/22 11:36 126/96 11/17/22 11:34 164 H 20 95 11/17/22 11:34 149/82 H 11/17/22 11:30 150 H 22 95 11/17/22 11:30 111/70 11/17/22 11:15 119 H 0 L 100 11/17/22 11:00 117 H 0 L 99 11/17/22 11:00 113/54 L 11/17/22 10:45 117 H 20 99 11/17/22 10:15 113 H 4 L 97 11/17/22 10:12 120/74 11/17/22 10:12 117 H 18 11/17/22 10:00 115 H 16 97 11/17/22 09:46 97 11/17/22 09:15 135 H 14 99 11/17/22 09:00 96 H 22 97 11/17/22 08:45 120 H 13 99 11/17/22 08:40 124 H 19 11/17/22 08:47 99 H 16 139/86 97 11/17/22 08:47 11/17/22 08:31 36.6 C 93 H 16 139/86 97 O2 Del Method 11/17/22 11:45 11/17/22 11:45 11/17/22 11:36 11/17/22 11:36 11/17/22 11:34 11/17/22 11:34 11/17/22 11:30 11/17/22 11:30 11/17/22 11:15 11/17/22 11:00 11/17/22 11:00 11/17/22 10:45 11/17/22 10:15 11/17/22 10:12 11/17/22 10:12 11/17/22 10:00 11/17/22 09:46 11/17/22 09:15 11/17/22 09:00 11/17/22 08:45 11/17/22 08:40 11/17/22 08:47 11/17/22 08:47 Room Air 11/17/22 08:31 Coding Level of Care Code Critical Care 1st 30-74 mins Diagnoses Isopropyl alcohol poisoning T51.2X1A Altered mental status R41.82 Suicidal ideation R45.851 Closed fracture nasal bone S02.2XXA Laceration of lip S01.511A Laceration of elbow, right S51.011A Time Spent (min) 45
[2022-11-17 14:43] LABS: Amphetamines+Metham, Urine Neg (Neg); Barbiturates, Urine Neg (Neg); Benzodiazepine, Urine Neg (Neg); Cocaine, Urine Neg (Neg); MDMA (Ecstacy), Urine Neg (Neg); Methadone, Urine Neg (Neg); Opiate, Urine Neg (Neg); Phencyclidine, Urine Neg (Neg)
[2022-11-17] MEDS ORDERED: Ativan IV Alcohol Withdrawal--Active Protocol IV PRN (15:49)
[2022-11-17] MEDS ORDERED: FLUARIX QUADRIVALENT 0.5 ML SYR IM ONE (16:16)
[2022-11-17] MEDS: NORMOSOL-R 1,000 ML IV SCH (16:32)
--- NOTE | 2022-11-17 18:43 | Communication Note ---
Date of Service: November 17, 2022 6:30p I saw the patient again in the ICU this evening and touched base with the primary RN. The patient has not required any additional sedation since his arrival today. He is still confused but easy to reorient. He will awaken and HR may go up to the 130s-160s but then he will settle back down again and HR is now in the 80s. Vitals are otherwise normal. Condom cath in place for incontinence. Per RN, patient mother called and mentioned finding an empty bottle of Jody aspirin on the floor of his room. I contacted poison control with this information and they felt like with the osmolar gap without anion gap and a negative salicylate level this morning, additional labwork was not needed at this point. They felt this was the classic picture of an isopropyl alcohol poisoning and that he was just in withdrawal at this point. Updated the nurse and will continue supportive care overnight. Barbra Campuzano, DO
[2022-11-17] MEDS ORDERED: FAMOTIDINE 20 MG in SYRINGE 3 ML IV SCH (21:00)
[2022-11-18] MEDS: NORMOSOL-R 1,000 ML IV SCH (04:05)
[2022-11-18 05:29] LABS: Hematocrit (blood only) 35.4 % (40.1-51.0); Hemoglobin 12.3 g/dl (14.0-18.0); Mean Corpuscular Hemoglobin 31.9 pg (25.0-34.0); Mean Corpuscular Hgb Conc 34.7 g/dL (32.0-36.0); Mean Corpuscular Volume 91.9 fL (80.0-100.0); Mean Platelet Volume 10.2 fL (9.4-12.4); Platelet Count 213 K/uL (130-400); RDW Coefficient of Variation 11.6 % (11.5-14.5); RDW Standard Deviation 39.2 fL (36.4-46.3); Red Blood Count 3.85 M/uL (4.63-6.08); White Blood Count 9.79 K/ul (4.8-10.8)
[2022-11-18 05:36] LABS: BUN Creatinine Ratio 5.1 (10-20); Calcium 8.4 mg/dl (8.5-10.1); Creatinine Clr Calc Pharmacy 85.4 ml/min; Est GFR (African American) 121.3 ml/min; Est GFR (Non-African American) 104.7 ml/min; Potassium 3.5 mmol/L (3.5-5.1)
--- NOTE | 2022-11-18 07:53 | Critical Care Progress Note ---
Date of Service November 18, 2022 Assessment & Plan (1) Altered mental status: (2) Isopropyl alcohol poisoning: (3) Closed fracture nasal bone: (4) Laceration of lip: Plan Impression: 27-year-old male status post isopropyl alcohol ingestion. He initially had encephalopathy and altered mental status which is now resolved. No evidence of recurrent seizure activity. He is hemodynamically stable. Recommendations: 1. Isopropyl alcohol ingestion: Patient has likely metabolized all the isopropyl alcohol without significant sequelae. No additional clinical follow- up required. 2. Potential salicylate ingestion: Patient does not demonstrate any significant acid-base abnormalities. No additional follow-up required as well. 3. Questionable suicidal attempt: The patient denies suicidal ideation currently. He reportedly had expressed some suicidal ideation at some point t wallace during his evaluation in the emergency room. Patient is currently on a med hold. Behavioral health evaluation pending. The patient is medically stable at this point in time. He can transfer out of the ICU. Additional care per the hospitalist service. 4. Nasal fracture: The patient can follow-up with ENT in the outpatient setting. 5. Mild anemia: No evidence of acute blood loss. Continue to follow clinically. 6. CPK mildly elevated secondary to abrasions. No indication for additional evaluation or work-up at this point time. 7. In the patient will have his condom catheter discontinued. Increase activity to ad jaime.. Advance diet. Patient's critical care issues have resolved. He will be returned back to the care of the hospitalist service. Critical care signing off. Feel free to contact us with questions or concerns Admission and Anticipated Discharge Date Admission Date: November 17, 2022 Subjective Patient seen and examined. EMR reviewed. Discussed with critical care nurse at bedside as well as with patient. No acute events overnight. The patient has not required any additional benzodiazepines. No seizure activity. He denies any neurological complaints. No chest pain palpitations or shortness of breath. He denies nausea or v omiting. He has some soreness of his lip but otherwise no pain issues. Is not been tachycardic. He denies suicidal or homicidal ideation at this point time. Review of Systems Review of Systems: All systems reviewed & are unremarkable except as noted in Subjective Physical Exam Constitutional: WD/WN, vitals as above ENMT: Asymmetrical facial swelling on the right with some bruising. No orbital step-off. Neck: trachea midline, no thyromegaly Respiratory: normal respiratory effort, lungs clear to auscultation Cardiovascular: RRR, no murmur, no edema Gastrointestinal (Abdomen): normal bowel sounds, soft, nontender, no hepatosplenomegaly Musculoskeletal: Extremities: extremities normal to inspection Skin: no rashes, warm and dry Neurologic: Nonfocal exam Lymphatic: no cervical lymphadenopathy Results & Data Results & Data ([facility]) Vital Signs (Past 12 Hours) Vital Signs Pulse Resp BP Pulse Ox O2 Del Method 11/18/22 07:00 116 H 21 117/76 99 Room Air 11/18/22 06:45 79 17 102/56 L 96 Room Air 11/18/22 04:00 76 18 95 11/18/22 04:00 120/58 L 11/18/22 03:45 80 20 96 11/18/22 03:45 124/69 11/18/22 03:30 107/59 L 11/18/22 03:30 91 H 24 96 11/18/22 03:15 80 18 97 11/18/22 03:15 108/54 L 11/18/22 03:00 79 18 95 11/18/22 03:00 110/54 L 11/18/22 02:45 106/53 L 11/18/22 02:45 75 18 95 11/18/22 02:30 105/53 L 11/18/22 02:30 91 H 19 96 11/18/22 02:15 100/51 L 11/18/22 02:15 77 21 96 11/18/22 02:00 130 H 14 11/18/22 02:00 101/61 11/18/22 01:45 99 H 22 100 11/18/22 01:45 118/67 11/18/22 01:30 113/60 11/18/22 01:30 87 19 100 11/18/22 01:16 85 31 H 100 11/18/22 01:16 136/72 11/18/22 01:00 104 H 24 97 11/18/22 01:00 125/67 11/18/22 00:45 112/74 11/18/22 00:45 132 H 17 97 11/18/22 00:30 104 H 15 100 11/18/22 00:30 108/48 L 11/18/22 00:15 94/49 L 11/18/22 00:15 88 19 99 11/18/22 00:00 88 19 99 11/18/22 00:00 95/51 L 11/17/22 23:45 97/52 L 11/17/22 23:45 92 H 20 100 11/17/22 23:30 88 20 100 11/17/22 23:30 110/61 11/17/22 23:15 88 20 100 11/17/22 23:15 106/59 L 11/17/22 23:00 93 H 20 99 11/17/22 23:00 100/47 L 11/17/22 22:45 80 21 100 11/17/22 22:45 95/52 L 11/17/22 22:30 114 H 19 100 11/17/22 22:30 97/56 L 11/17/22 22:00 77 21 100 11/17/22 22:00 104/57 L 11/17/22 21:45 130 H 14 11/17/22 21:45 115/70 11/17/22 21:30 90 19 11/17/22 21:30 105/51 L 11/17/22 21:15 91 H 19 11/17/22 21:15 103/53 L 11/17/22 21:00 86 18 11/17/22 21:00 102/54 L 11/17/22 20:45 86 18 11/17/22 20:45 99/58 L 11/17/22 20:30 100 H 25 H 11/17/22 20:30 105/59 L 11/17/22 20:15 90 20 11/17/22 20:15 102/55 L 11/17/22 20:00 95 H 21 11/17/22 20:00 91/48 L 11/17/22 19:59 96 H 21 11/17/22 19:59 93/48 L Critical Care Results & Data Vital Signs (Past 12 Hours) Vital Signs Pulse Resp BP Pulse Ox O2 Del Method 11/18/22 07:00 116 H 21 117/76 99 Room Air 11/18/22 06:45 79 17 102/56 L 96 Room Air 11/18/22 04:00 76 18 95 11/18/22 04:00 120/58 L 11/18/22 03:45 80 20 96 11/18/22 03:45 124/69 11/18/22 03:30 107/59 L 11/18/22 03:30 91 H 24 96 11/18/22 03:15 80 18 97 11/18/22 03:15 108/54 L 11/18/22 03:00 79 18 95 11/18/22 03:00 110/54 L 11/18/22 02:45 106/53 L 11/18/22 02:45 75 18 95 11/18/22 02:30 105/53 L 11/18/22 02:30 91 H 19 96 11/18/22 02:15 100/51 L 11/18/22 02:15 77 21 96 11/18/22 02:00 130 H 14 11/18/22 02:00 101/61 11/18/22 01:45 99 H 22 100 11/18/22 01:45 118/67 11/18/22 01:30 113/60 11/18/22 01:30 87 19 100 11/18/22 01:16 85 31 H 100 11/18/22 01:16 136/72 11/18/22 01:00 104 H 24 97 11/18/22 01:00 125/67 11/18/22 00:45 112/74 11/18/22 00:45 132 H 17 97 11/18/22 00:30 104 H 15 100 11/18/22 00:30 108/48 L 11/18/22 00:15 94/49 L 11/18/22 00:15 88 19 99 11/18/22 00:00 88 19 99 11/18/22 00:00 95/51 L 11/17/22 23:45 97/52 L 11/17/22 23:45 92 H 20 100 11/17/22 23:30 88 20 100 11/17/22 23:30 110/61 11/17/22 23:15 88 20 100 11/17/22 23:15 106/59 L 11/17/22 23:00 93 H 20 99 11/17/22 23:00 100/47 L 11/17/22 22:45 80 21 100 11/17/22 22:45 95/52 L 11/17/22 22:30 114 H 19 100 11/17/22 22:30 97/56 L 11/17/22 22:00 77 21 100 11/17/22 22:00 104/57 L 11/17/22 21:45 130 H 14 11/17/22 21:45 115/70 11/17/22 21:30 90 19 11/17/22 21:30 105/51 L 11/17/22 21:15 91 H 19 11/17/22 21:15 103/53 L 11/17/22 21:00 86 18 11/17/22 21:00 102/54 L 11/17/22 20:45 86 18 11/17/22 20:45 99/58 L 11/17/22 20:30 100 H 25 H 11/17/22 20:30 105/59 L 11/17/22 20:15 90 20 11/17/22 20:15 102/55 L 11/17/22 20:00 95 H 21 11/17/22 20:00 91/48 L 11/17/22 19:59 96 H 21 11/17/22 19:59 93/48 L Lab & Micro Results (Past 24 Hours) RBC 3.85 M/uL (4.63-6.08) L 11/18/22 WBC 9.79 K/ul (4.8-10.8) 11/18/22 Hgb 12.3 g/dl (14.0-18.0) L 11/18/22 Hct 35.4 % (40.1-51.0) L 11/18/22 MCV 91.9 fL (80.0-100.0) 11/18/22 MCH 31.9 pg (25.0-34.0) 11/18/22 MCHC 34.7 g/dL (32.0-36.0) 11/18/22 RDW Standard Deviation 39.2 fL (36.4-46.3) 11/18/22 RDW Coefficient of Variation 11.6 % (11.5-14.5) 11/18/22 Plt Count 213 K/uL (130-400) 11/18/22 MPV 10.2 fL (9.4-12.4) 11/18/22 Neutrophils (%) (Auto) 89.7 % 11/17/22 Lymphocytes (%) (Auto) 4.1 % 11/17/22 Monocytes # (Auto) 1.00 K/uL (0.24-0.82) H 11/17/22 Eosinophils # (Auto) 0.00 K/uL (0-0.50) 11/17/22 Immature Granulocyte % (Auto) 0.5 % 11/17/22 Neutrophils # (Auto) 16.17 K/uL (1.4-6.5) H 11/17/22 Lymphocytes # (Auto) 0.74 K/uL (1.2-3.4) L 11/17/22 Monocytes # (Auto) 1.00 K/uL (0.24-0.82) H 11/17/22 Eosinophils # (Auto) 0.00 K/uL (0-0.50) 11/17/22 Basophils # (Auto) 0.04 K/uL (0-0.2) 11/17/22 Immature Granulocyte # (Auto) 0.09 K/uL (0.00-0.02) H 11/17 Na 140 mmol/L (136-145) 11/18/22 K 3.5 mmol/L (3.5-5.1) 11/18/22 Cl 109 mmol/L (98-107) H 11/18/22 CO2 25 mmol/L (21-32) 11/18/22 Anion Gap 6 (3-11) 11/18/22 BUN 5 mg/dl (6-23) L 11/18/22 Creatinine 0.99 mg/dl (0.6-1.4) 11/18/22 Estimated GFR ( Amer) 121.3 ml/min 11/18/22 Estimated GFR (Non-Af Amer) 104.7 ml/min 11/18/22 BUN/Creatinine Ratio 5.1 (10-20) L 11/18/22 Glu 89 mg/dl (70-99(Fasting)) 11/18/22 Ca 8.4 mg/dl (8.5-10.1) L 11/18/22 Total Bilirubin 0.3 mg/dl (0.2-1.0) 11/17/22 AST 22 U/L (13-39) 11/17/22 ALT 18 U/L (7-52) 11/17/22 Alkaline Phosphatase 56 U/L (34-104) 11/17/22 TP 7.6 gm/dl (6.0-8.3) 11/17/22 Albumin 4.5 gm/dl (3.4-5.0) 11/17/22 Globulin 3.1 gm/dl (2.5-4.0) 11/17/22 Albumin/Globulin Ratio 1.5 (0.9-2) 11/17/22 Mg 1.9 mg/dl (1.7-2.4) 11/17/22 09:00 Calcium Level 8.4 mg/dl (8.5-10.1) L 11/18/22 04:51 Prothromb Time International Ratio 1.1 (0.9-1.1) 11/17/22 09:0 0 Venous Blood pH 7.38 (7.36-7.41) 11/17/22 10:09 Venous Blood Partial Pressure CO2 41 mmHg (38-50) 11/17/22 10:0 9 Venous Blood Partial Pressure O2 60 mmHg 11/17/22 10:09 Venous Blood HCO3 24 mmol/L 11/17/22 10:09 Venous Blood Base Excess -0.8 mEq/L 11/17/22 10:09 Venous Blood Oxygen Saturation 90.7 % 11/17/22 10:09 Diagnostic Findings (Past 24 Hours) Chest X-Ray 11/17/22 09:10 XR chest 1V portable CLINICAL HISTORY: overdose COMPARISON STUDY: No previous studies for comparison. FINDINGS: Exam is compromised given difficulty positioning. Lung volumes are normal. Lungs are clear. There is no pneumothorax or pleural effusion. Cardiac size is normal. Mediastinal contours are normal. There is no evidence for pul monary edema. IMPRESSION: No acute cardiopulmonary findings. ACT 112: Negative or not required by law. Electronically signed by: Lavon Clark M.D. 11/17/2022 10:[address] 11/17/22 09:14 CT OF THE CERVICAL SPINE WITHOUT CONTRAST CLINICAL HISTORY: AMS pain COMPARISON STUDY: No previous studies for comparison. TECHNIQUE: Helical axial images of the cervical spine were obtained without IV contrast. Sagittal and coronal reconstructions were viewed. Automated exposure control was utilized for the study. A dose lowering technique was utilized adhering to the principles of ALARA. FINDINGS: Alignment of the cervical spine is anatomic. Vertebral body heights are maintained. No acute cervical spine fracture or subluxation is present. There is no prevertebral edema. Facet joints are intact. IMPRESSION: No acute cervical spine fracture or subluxation. ACT 112: Negative or not required by law. Electronically signed by: Lavon Clark M.D. 11/17/2022 11:[address] 11/17/22 09:14 CT OF THE HEAD WITHOUT CONTRAST CLINICAL HISTORY: Altered mental status. COMPARISON STUDY: No previous studies for comparison. TECHNIQUE: Helical axial images of the head were obtained without IV contrast. Automated exposure control was utilized for the study. A dose lowering technique was utilized adhering to the principles of ALARA. FINDINGS: No acute intracranial hemorrhage, midline shift or mass effect is present. The ventricular system is unremarkable. The basal cisterns are patent. No extra-axial collections are present. There are no findings to suggest acute dural sinus thrombosis or acute territorial infarct. No significant calvarial abnormalities are present. Visualized portions of the sinuses and mastoid air cells are clear. Right nasal contusion is present. There is an acute fracture of the right nasal bone. This is better depicted on the maxillofacial CT. IMPRESSION: 1. No acute intracranial findings. 2. No acute calvarial fracture. 3. Right facial contusion. Acute right nasal bone fracture. ACT 112: Negative or not required by law. Electronically signed by: Lavon Clark M.D. 11/17/2022 11:[address] 11/17/22 09:15 CT facial bones wo con CLINICAL HISTORY: trauma TECHNIQUE: Multidetector row helical CT of the maxillofacial bones was performed without administration of intravenous contrast, and processed with bone and soft tissue algorithms. Coronal and sagittal reformations were obtained. Automated dose lowering techniques and/or adjustment according to patient size were utilized for this exam. CT DOSE: 1248.17 mGy.cm Comparison: None available at the time of this dictation. FINDINGS: There is an acute fracture of the right nasal bone. Soft tissue swelling is seen. The mandible is intact. The temporomandibular joints are anatomically aligned. Pterygoid plates are intact. Zygomatic arches are intact. The globes are normal and symmetric, without proptosis, obvious disruption or lens dislocation. There is no orbital radiopaque foreign body. The orbital nova are intact. The retrobulbar fat is without evidence of disruption. Extraocular muscles are normal and symmetric. Optic nerve sheath complexes are normal in course and caliber. There is a fracture of the right nasal bone with surrounding soft tissue swelling. IMPRESSION: No acute facial fracture. ACT 112: Negative or not required by law. Electronically signed by: Ian Thomas M.D. 11/17/2022 11:10 AM I & O Totals 24 Hours 11/17/22 11/18/22 11/19/22 06:59 06:59 06:59 Intake Total 3203.2 / 3203.2 Output Total 1100 / 1100 Balance 2103.2 / 2103.2 Cumulative 11/17/22 08:26 thru 11/18/22 06:00 Intake Total 3203.2 Output Total 1100 Balance 2103.2 RT Ventilator Mngmt (Last Documented) Ventilator Ordered Settings Respiratory Rate 21 11/18/22 07:00 Ventilator - PT Measurements Respiratory Rate 21 Coding Level of Care Code 46450 SUB INP/OBS CARE 2/35MIN Diagnoses Altered mental status R41.82 Isopropyl alcohol poisoning T51.2X1A Closed fracture nasal bone S02.2XXA Laceration of lip S01.511A
--- NOTE | 2022-11-18 07:57 | Electroencephalogram ---
EEG Procedure Note Date of Service November 18, 2022 Start / End Times Start Time: 7:13 AM End Time: 7:33 AM Referring Physician Tigist Leoanrd History Seizure, alcohol overdose Home Medication List Medication Instructions Recorded Confirmed Type No Known Home Medications 11/17/22 11/17/22 History Inpatient Medication List Parenteral Electrolytes (Normosol-R) 1,000 mls @ 100 mls/hr IV .Q10H LUCIE Stop: 12/17/22 15:59 Last Admin: 11/18/22 04:05 Dose: 100 mls/hr Documented By: Infusion: 11/18/22 02:32 Dose: 100 mls/hr Documented By: Admin: 11/17/22 16:32 Dose: 100 mls/hr Documented By: IGNACIA Famotidine 20 mg/ Syringe 5 mls @ 2.5 mls/min IV Q12 LUCIE Stop: 12/17/22 20:59 Last Admin: 11/17/22 21:42 Dose: 2.5 mls/min Documented By: NORRIS Discontinued Medications Diphtheria/Pertussis/Tetanus Vacc (Diphtheria/Tetanus/Pertussis 0.5 Ml Syr/Vial) 0.5 ml IM .ONCE ONE Stop: 11/17/22 11:16 Last Admin: 11/17/22 12:21 Dose: 0.5 ml Documented By: SNEHA Multivitamins 10 ml/ Thiamine HCl 100 mg/ Folic Acid 1 mg/Sodium Chloride 1,011.2 mls @ 1,011.2 mls/hr IV .Q1H ONE Stop: 11/17/22 10:09 Last Infusion: 11/17/22 11:45 Dose: 0 mls/hr Documented By: Admin: 11/17/22 10:13 Dose: 1,011.2 mls/hr Documented By: ANDREW Thiamine HCl 200 mg/ Sodium (Chloride) 52 mls @ 208 mls/hr IV NOW STA Stop: 11/17/22 09:16 Last Infusion: 11/17/22 12:57 Dose: 0 mls/hr Documented By: Admin: 11/17/22 12:37 Dose: 208 mls/hr Documented By: SNEHA Potassium Acetate (Potassium Acetate/Nss) 10 meq in 105 mls @ 105 mls/hr IV Q1H LUCIE Stop: 11/17/22 14:44 Last Admin: 11/17/22 16:18 Dose: Not Given Documented By: IGNACIA Sodium Chloride (Nss 1000ml) 1,000 mls @ 999 mls/hr IV .Q1H1M LUCIE Stop: 11/17/22 13:45 Last Infusion: 11/17/22 15:23 Dose: 0 mls/hr Documented By: Admin: 11/17/22 14:22 Dose: 999 mls/hr Documented By: SNEHA Lidocaine HCl (Xylocaine 1%/Sod Bicarb 20 Ml Vial) 20 ml INFIL NOW ONE Stop: 11/17/22 11:16 Last Admin: 11/17/22 12:21 Dose: 20 ml Documented By: SNEHA Lorazepam (Lorazepam 2 Mg/1 Ml Vial) 1 mg IV NOW STA Stop: 11/17/22 09:11 Last Admin: 11/17/22 09:45 Dose: 1 mg Documented By: AGUEDA Lorazepam (Lorazepam 2 Mg/1 Ml Vial) 2 mg IV NOW STA Stop: 11/17/22 10:15 Last Admin: 11/17/22 10:25 Dose: 2 mg Documented By: AGUEDA Lorazepam (Lorazepam 2 Mg/1 Ml Vial) 2 mg IV NOW STA Stop: 11/17/22 10:24 Last Admin: 11/17/22 11:40 Dose: Not Given Documented By: AGUEDA Lorazepam (Lorazepam 2 Mg/1 Ml Vial) 1 mg IV ONE PRN; Protocol PRN Reason: EtoH Withdrawal AWSS 6,7,8,9,10 Last Admin: 11/17/22 11:40 Dose: 1 mg Documented By: SNEHA Lorazepam (Lorazepam 2 Mg/1 Ml Vial) Confirm Administered Dose 2 mg .ROUTE .STK- MED ONE Stop: 11/17/22 12:31 Last Admin: 11/17/22 12:47 Dose: Not Given Documented By: SNEHA Lorazepam (Lorazepam 2 Mg/1 Ml Vial) 2 mg IV NOW STA Stop: 11/17/22 12:36 Last Admin: 11/17/22 16:06 Dose: Not Given Documented By: IGNACIA Phenobarbital Sodium (Phenobarbital Sodium 65 Mg/Ml Vial) 130 mg IV NOW STA Stop: 11/17/22 12:29 Last Admin: 11/17/22 16:06 Dose: Not Given Documented By: IGNACIA Description This is a 21 electrode EEG with a single channel dedicated to limited EKG. The electrodes were placed in accordance with the International 10-20 system. There is a posterior dominant rhythm of 10 Hz which is symmetrically distributed and attenuates with eye opening. There is a normal anterior to posterior organization. Photic stimulation is unremarkable. Hyperventilation is not performed. There is a symmetric frontal beta rhythm. There is no focal slowing. No epileptiform abnormalities. No sleep changes. Interpretation Normal-appearing awake/drowsy EEG. A normal EEG does not completely exclude a diagnosis of epilepsy. Further clinical correlation may be needed. [facility] EEG Procedure Codes Indication for Procedure (1) Seizure-like activity: (2) Altered mental status: Neurology Neurology: 09061 EEG include record awake & drowsy
--- NOTE | 2022-11-18 08:22 | Electrocardiogram Report ---
Test Reason : Blood Pressure : / mmHG Vent. Rate : 124 BPM Atrial Rate : 124 BPM P-R Int : 138 ms QRS Dur : 084 ms QT Int : 322 ms P-R-T Axes : 065 089 061 degrees QTc Int : 462 ms Sinus tachycardia Borderline ECG No previous ECGs available Confirmed by Kieran Masters ([id number]) on 11/17/2022 3:58:55 PM Also confirmed by Kieran Masters ([id number]), features editor Haim Cannon ([id number]) on 11/18/2022 8:22:37 AM Referred By: REFERRED SELF Confirmed By:Kieran Masters
[2022-11-18] MEDS ORDERED: FOLIC ACID 1 MG in SYRINGE 9.8 ML IV SCH (09:00)
[2022-11-18] MEDS ORDERED: THIAMINE HCL 100 MG in SYRINGE 9 ML IV SCH (09:00)
[2022-11-18] MEDS: THIAMINE HCL 100 MG TAB PO SCH (09:20)
[2022-11-18] MEDS: FOLIC ACID 1 MG TAB PO SCH (09:20)
--- NOTE | 2022-11-18 10:06 | Neurology Consultation ---
Date of Consultation November 18, 2022 Assessment & Plan (1) Seizure-like activity: (2) Isopropyl alcohol poisoning: (3) Alcohol withdrawal: Plan 27-year-old male with probable provoked seizure occurring in the context of alcohol withdrawal and probable isopropyl alcohol consumption. Patient is neurologically intact this morning. His initial CT of the head was unremarkable. He does not have a known history of epilepsy. I do not believe additional neurological evaluation is necessary for this patient's provoked seizure. If, however, he were to have additional episodes going forward, would consider MRI of the brain with and without gadolinium, thin cuts through the temporal lobes (i.e. seizure protocol.). Would also consider obtaining ambulatory EEG monitoring in that context. Continue supportive medical care for management of alcohol withdrawal and acute isopropyl alcohol consumption. Agree with supplemental thiamine, folate, use of lorazepam as needed. Agree with psychiatry consultation. No further immediate neurological recommendations. History of Present Illness Reason for Consultation: possible seizure, alcohol AD Requesting Physician: CRISTINA Allen Attending Physician: Hadley Kiran MD History of Present Illness The patient is a 27-year-old male who presented to the emergency department yesterday for further evaluation and management of a suspected seizure. His mother apparently found him on the floor at home shaking, confused, without any clothes on. He had some right-sided facial trauma as well. He has a history notable for alcohol abuse and prior suicide attempts. There was an empty bottle of rubbing alcohol found in his room on the floor as well. Patient did endorse that he probably consumed the rubbing alcohol. Admission history also indicates that he had been drinking alcohol excessively over the holidays but then subsequently stopped. He was delirious during his assessment in the emergency department and was administered lorazepam and phenobarbital. Right upper lip and right arm lacerations were sutured. He did have a CT of the head and cervical spine completed. The studies were unremarkable. No evidence of hemorrhage or acute process. There was a right facial contusion with an acute right nasal bone fracture, however. This morning, the patient does not have any specific complaint, denies headache, vision disturbance, change in speech, focal weakness, or sensory loss. I do note his history of inpatient psychiatric treatment in May 2020 for severe depression. He was apparently diagnosed with schizophrenia at that time as well. He apparently has a history of suicide attempt with aspirin overdose. An EEG was completed this morning. I did personally review the study. Normal-appearing EEG, no epileptiform abnormalities. Allergies Allergy/AdvReac Type Severity Reaction Status Date / Time shellfish derived Allergy Severe Anaphylaxis Verified 11/17/22 14:03 Home Medications Medication Instructions Recorded Confirmed Type No Known Home Medications 11/17/22 11/17/22 History Patient History Medical History Alcohol abuse History of nicotine vaping History of tobacco abuse Insomnia Major depression, recurrent, chronic Seasonal allergic rhinitis Suicidal ideation Suicide attempt Surgical History Surgical history unknown Family History Other Family history non-contributory Social History Smoking Status: Current some day smoker Hx Alcohol Use: Yes Alcohol Intake Frequency: 4 or More x per/Week Preferred Language: [place] Current Living Situation: Parent current occupational status: previously employed Feels Safe at Home: Yes Review of Systems Constitutional: no fever and no chills Eyes: no blind spots and no diplopia Ear, Nose, Mouth, Throat: no ear pain and no hearing loss Respiratory: no cough and no dyspnea Cardiovascular: no chest pain and no dyspnea on exertion Gastrointestinal: + vomiting; no abdominal pain Genitourinary: no dysuria or no urinary incontinence Musculoskeletal: no back pain, no neck pain and no myalgia Integumentary: no rash and no lesions Neurologic: as per Subjective / HPI Psychiatric: + depression Hematologic / Lymphatic: no easy bleeding and no easy bruising Exam (Neuro) Constitutional: well developed and well nourished; no acute distress Eyes: normal visual loera by confrontation, PERRL, normal accommodation and EOM intact bilaterally; no fundoscopic abnormality, no nystagmus and no papilledema Cardiovascular: Vessels: normal carotid upstroke; no carotid bruit Neurologic: Oriented to:: Person, Place and Time Memory: Short Term Intact and Remote Intact Attention: Span Intact and Concentration Intact Language: Naming Objects and Repeating Phrases Speech Fluency: negative Dysarthria Speech Aphasia: negative Aphasia Fund of Knowledge: Current Events, Past History and Vocabulary Cranial Nerves: Normal II (Visual loera full to confrontation, visual acuity normal), III, IV, (Pupils equal round reactive to light and accommodation, eye movements normal), V (Facial sensation intact), VII (There is no facial droop or weakness), VIII (Hearing intact), IX, X (Palate elevates to midline), XI (Shoulder shrug intact) and XII (Tongue protrudes to midline) Motor Strength: Normal Lower Extremities and Normal Upper Extremities; negative Pronator Drift Motor Tone: Normal Lower Extremities and Normal Upper Extremities Muscle Bulk/Involuntary Movements: No Involuntary Movements; negative Muscle Atrophy Sensation: Light Touch Intact, Pain/Temperature Intact, Vibration Intact and Proprioception Intact Coordination: Normal; negative Limited Balance, Dysdiadochokinesia, Finger-Nose Abnormal or Heel-King Abnormal Deep Tendon Reflexes: Rt Triceps: 2+, Lt Triceps: 2+, Rt Biceps: 2+, Lt Biceps: 2+, Rt Brachioradialis: 2+, Lt Brachioradialis: 2+, Rt Patellar: 2+, Lt Patellar: 2+, Rt Ankle: 2+ and Lt Ankle: 2+ Special Tests: negative Babinski Present Gait: Normal Station and Gait Results & Data ([facility]) Vital Signs (Past 12 Hours) Vital Signs Pulse Resp BP Pulse Ox O2 Del Method 11/18/22 09:00 76 16 118/64 100 Room Air 11/18/22 08:04 92 H 20 102/58 L 96 Room Air 11/18/22 07:00 120 H 12 117/76 100 Room Air 11/18/22 07:51 122 H 11/18/22 07:00 116 H 21 117/76 99 Room Air 11/18/22 06:45 79 17 102/56 L 96 Room Air 11/18/22 04:00 76 18 95 11/18/22 04:00 120/58 L 11/18/22 03:45 80 20 96 11/18/22 03:45 124/69 11/18/22 03:30 107/59 L 11/18/22 03:30 91 H 24 96 11/18/22 03:15 80 18 97 11/18/22 03:15 108/54 L 11/18/22 03:00 79 18 95 11/18/22 03:00 110/54 L 11/18/22 02:45 106/53 L 11/18/22 02:45 75 18 95 11/18/22 02:30 105/53 L 11/18/22 02:30 91 H 19 96 11/18/22 02:15 100/51 L 11/18/22 02:15 77 21 96 11/18/22 02:00 130 H 14 11/18/22 02:00 101/61 11/18/22 01:45 99 H 22 100 11/18/22 01:45 118/67 11/18/22 01:30 113/60 11/18/22 01:30 87 19 100 11/18/22 01:16 85 31 H 100 11/18/22 01:16 136/72 11/18/22 01:00 104 H 24 97 11/18/22 01:00 125/67 11/18/22 00:45 112/74 11/18/22 00:45 132 H 17 97 11/18/22 00:30 104 H 15 100 11/18/22 00:30 108/48 L 11/18/22 00:15 94/49 L 11/18/22 00:15 88 19 99 11/18/22 00:00 88 19 99 11/18/22 00:00 95/51 L 11/17/22 23:45 97/52 L 11/17/22 23:45 92 H 20 100 11/17/22 23:30 88 20 100 11/17/22 23:30 110/61 11/17/22 23:15 88 20 100 11/17/22 23:15 106/59 L 11/17/22 23:00 93 H 20 99 11/17/22 23:00 100/47 L 11/17/22 22:45 80 21 100 11/17/22 22:45 95/52 L 11/17/22 22:30 114 H 19 100 11/17/22 22:30 97/56 L 11/17/22 22:00 77 21 100 11/17/22 22:00 104/57 L Laboratory Results WBC 9.79, hemoglobin 12.3, hematocrit 35.4, platelet count 213, sodium 140, potassium 3.5, BUN 5, creatinine 0.99, glucose 89, calcium 8.4, magnesium 1.9, AST 22, ALT 18, total CK2 57, urine toxicology screen positive for marijuana, ethyl alcohol level less than [address] of the head and cervical spine are as described in the HPI, I independently reviewed these images. Electrocardiogram reveals a normal sinus rhythm, 100 bpm. PG Care Time/CCT Total # of Minutes Spent Total Time Spent with Patient: Total time spent is greater than 50% in coordination of care (as documented) at patient's floor/unit and/or counseling patient: Coding Level of Care Code 22353 INT INP/OBS CARE 3/75MIN Diagnoses Seizure-like activity R56.9 Isopropyl alcohol poisoning T51.2X1A Alcohol withdrawal F10.939
--- NOTE | 2022-11-18 11:18 | Communication Note ---
Date of Service: November 18, 2022 Patient too sedated yesterday to be seen for psychiatric consult. He will be seen within the next 24 hours for psychiatric consult.
--- NOTE | 2022-11-18 11:27 | Electrocardiogram Report ---
Test Reason : Blood Pressure : / mmHG Vent. Rate : 100 BPM Atrial Rate : 100 BPM P-R Int : 142 ms QRS Dur : 086 ms QT Int : 346 ms P-R-T Axes : 065 079 065 degrees QTc Int : 446 ms Normal sinus rhythm Nonspecific T wave abnormality Abnormal ECG When compared with ECG of 17-NOV-2022 13:17, Non-specific change in ST segment in Lateral leads Confirmed by Paulino Herman ([id number]) on 11/18/2022 11:26:45 AM Referred By: REFERRED SELF Confirmed By:Paulino Herman
[2022-11-18] MEDS ORDERED: traZODone HCL 50 MG TAB PO PRN (13:34)
--- NOTE | 2022-11-18 13:34 | Psychiatric Consultation ---
Date of Consultation November 18, 2022 Impression / Recommendations Impression This is a 27 yo with a history of alcohol use and schizophrenia admitted medically. Diagnostically consistent with alcohol use disorder as well as possible unspecified depression (per family account, he denies any mood symptoms) which is likely substance-induced vs MDD. Acute risk of self-harm is low given denial of SI, denies ingestion was a suicide attempt, no longer with intoxication and motivated to seek substance use treatment. Chronic risk of self-harm and harm to others is moderate due to substance use with substance use treatment being the most significant modifiable risk factor to reduce acute and chronic risk. He also has chronic non-modifiable risk factors for self-harm including prior inpatient hospitalization, prior suicide attempt, and prior diagnosis of schizophrenia but also with protective factors of supportive family.He does not meet criteria for inpatient psychiatric treatment over objection at this time rather recommendation is for dual diagnosis or residential substance use treatment. He is interested in residential substance use treatment at this time and discussed benefits of this. Overall, I spent a total of 45 minutes with this case including review of chart records, review of labwork, review of EKG QTc, direct evaluation of the patient at bedside, counseling the patient, ordering medication, discussion of the patient with the hospitalist provider, discussion with the psychiatric liason during clinical rounds, review of collateral historian information from the family on the 302 petition and documentation in the electronic health record. (1) Alcohol use disorder, severe, dependence: (2) Isopropyl alcohol poisoning: (3) Alcohol withdrawal: (4) Depression, unspecified: Plan -If he asks to leave AMA would need to be assessed for decision making capacity given alcohol withdrawal and possibility for delirium, no current signs of this; Patient is not an imminent danger to self or others and does not meet criteria for involuntary psychiatric commitment -Encourage residential substance use treatment, case management can help with referrals if he remains interested in this -If he changes his mind regarding residential treatment please notify psych liason who can then provide resources and try to get him set up with outpatient substance use/dual diagnosis services -Defer to hospitalist but felt to be safe to discontinue 1-on-1 -Start trazodone 50mg hs prn for insomnia -Agree with AWSS, thiamine, folic acid -In future could consider use of naltrexone for alcohol use disorder if LFTs sta ble Psych History Identifying Data 27 yo man who lives with family in [place] with history of schizophrenia and alcohol use admitted for complicated alcohol withdrawal and isopropyl alcohol ingestion. Psychiatry consulted for risk assessment and recommendations. Chief Complaint "I was just trying to get a buzz". History of Present Illness Selwyn was brought to the ED by his family after he stopped drinking alcohol over the past week (due to lack of access) and then with abrupt onset of bizarre behaviors including walking out of his basement naked, falling, confusion and after being found having ingested about two cups of isopropyl alcohol from his mother's craft closet. Family completed a 302 petition in the ED noting history of schizophrenia with hospitalizations in 2019, history of suicide attempt in 2020 via Aspirin, and statements of rather being if he can't drink alcohol that he's made to family members. Since admission he has been denying that the ingestion of isopropyl alcohol was part of a suicide attempt. His mother provided further collateral yesterday evening that she found an empty bottle of Aspirin on his floor at home but his salicylate level was negative. Today Selwyn is fully oriented and engages well in conversation. He agrees that his alcohol use is very problematic and that he typically drinks 6-10 beers per day with high alcohol content. He states he hasn't been drinking in about two weeks and found the isopropyl alcohol and decided to drink it to get a buzz and "I thought it could be mildly toxic but not enough that I thought it would make me sick or cause me to have to go to the hospital and I definitely didn't want to ". Adamantly denies any recent SI or that this was a suicide attempt nor that he felt ambivalent about what could happen if he drank the isopropyl alcohol. He denies taking any aspirin. He doesn't recall making any statements of suicide to his family but acknowledges "maybe when I was drunk and I don't remember". He denies any current symptoms of depression or anxiety. States he was diagnosed with schizophrenia in the past because he was hearing auditory hallucinations but denies any recent AH. Denies using alcohol to treat or self-medicate any mood symptoms or AH. No access to guns at home. Hasn't been sleeping well and would be interested in medication to help with sleep. Is motivated and willing for residential substance use treatment, has never done this before. Allergies Allergy/AdvReac Type Severity Reaction Status Date / Time shellfish derived Allergy Severe Anaphylaxis Verified 11/17/22 14:03 Home Medications Medication Instructions Recorded Confirmed Type No Known Home Medications 11/17/22 11/17/22 History Substance Abuse History alcohol use, cannabis use Personal History Living Arrangements: Home Patient History Medical History Alcohol abuse History of nicotine vaping History of tobacco abuse Insomnia Major depression, recurrent, chronic Seasonal allergic rhinitis Suicidal ideation Suicide attempt Surgical History Surgical history unknown Family History Other Family history non-contributory Social History Smoking Status: Current some day smoker Hx Alcohol Use: Yes Alcohol Intake Frequency: 4 or More x per/Week Preferred Language: Romanian Communication Ability: Unable Current Living Situation: Parent current occupational status: previously employed Feels Safe at Home: Yes Physical Exam Psychiatric: Orientation: alert and oriented x 3 Apperance: appropriately dressed and appropriately groomed Eye Contact: good eye contact Motor Behavior: no abnormal motor movements Speech: normal rate/rhythm/volume of speech Affect: + constricted affect Mood: no depressed mood and no anxious mood Thought Process: linear/logical thought process Thought Content: reality based without delusions Suicidal Thoughts: denies suicidal thoughts Homicidal Thoughts: denies homicidal thoughts Hallucinations: no auditory hallucinations and no visual hallucinations Cognition: recent memory grossly intact (some gaps from yesterday), remote memory grossly intact, attention grossly intact and language grossly intact Estimated Intelligence: consistent with education level Insight: + fair insight Judgement: + limited judgem ent Vital Signs (Past 24 Hours): Last Vital Signs Temp 36.9 C 11/17/22 15:00 Pulse 69 11/18/22 12:00 Resp 17 11/18/22 12:00 BP 108/60 11/18/22 12:00 Pulse Ox 95 11/18/22 12:00 O2 Del Method 11/18/22 12:00 Review of Systems All systems reviewed & are unremarkable except as noted in HPI & below (some pain from swollen lip and face from fall ) Results & Data ([facility]) Laboratory Results UDS positive for THC, Na+ normal Diagnostic Findings EKG QTc 446 ms Medications Administered Folic Acid (Folic Acid 1 Mg Tab) 1 mg PO [facility] Stop: 12/18/22 08:59 Last Admin: 11/18/22 09:20 Dose: 1 mg Documented By: IGNACIA Thiamine HCl (Thiamine Hcl 100 Mg Tab) 100 mg PO [facility] Stop: 12/18/22 08:59 Last Admin: 11/18/22 09:20 Dose: 100 mg Documented By: IGNACIA Coding Level of Care Code INP/OBS CONSULT LVL 3, 45 MIN Diagnoses Alcohol use disorder, severe, dependence F10.20 Isopropyl alcohol poisoning T51.2X1A Alcohol withdrawal F10.939 Depression, unspecified F32.A Time Spent (min) 45
--- NOTE | 2022-11-18 16:04 | Hospitalist Progress Note ---
Date of Service November 18, 2022 Assessment & Plan (1) Isopropyl alcohol poisoning: (2) Alcohol withdrawal: (3) Delirium tremens: Plan: Acute metabolic encephalopathy Likely due to isopropyl alcohol Ingestion Seizure-like activity Isopropyl alcohol poisoning Alcohol withdrawal --EEG:Normal-appearing awake/drowsy EEG. A normal EEG does not completely exclude a diagnosis of epilepsy. Further clinical correlation may be needed. -- Imaging studies reviewed --Tox Screen: Positive for marijuana --Ethylene glycol level pending Poison control consulted: Recommended conservative management Continue thiamine, folic acid Counseled to quit drinking Appreciate neurology, smt machine operator input Monitor for alcohol withdrawal (4) Suicidal ideation: (5) Suicide attempt: Plan: Possible Depression Vs Substance Induced Initial 302 paperwork completed in ED. H/O severe depression Denies suicidal thoughts If patient leaves AMA, decision-making capacity should be addressed Currently interested in going to alcohol rehab Appreciate psychiatry input Started on trazodone 50 mg at bedtime as needed for insomnia Counseled to quit drinking alcohol (6) Laceration of lip: (7) Laceration of elbow, right: (8) Closed fracture nasal bone: Plan: Sutured in ED -Head CT:No acute intracranial findings. No acute calvarial fracture. Right facial contusion. Acute right nasal bone fracture. -Face CT:No acute facial fracture. -Neck CT:No acute cervical spine fracture or subluxation. Plan DVT Px: SCDs for now Code Status: Full Code Disposition Rehab as able Admission and Anticipated Discharge Date Admission Date: November 17, 2022 Subjective Patient is seen and examined at bedside States having mild soreness of upper lip on the right side Sinus tachycardia on monitor Denies any chest pain, dyspnea, dizziness, nausea, abdominal pain Also denies any suicidal thoughts Discussed with psychiatry Review of Systems Review of Systems: All systems reviewed & are unremarkable except as noted in Subjective Physical Exam Physical Exam: Physical Exam: Vitals signs as noted above General Appearance:Moderately built and nourished, no apparent distress Head: normocephalic, +traumatic, Upper lip swelling Eyes: normal inspection, EOMI Neck: supple, Trachea midline Respiratory/Chest: Normal breath sounds, CTA, No accessory muscle use Cardiovascular: S1, S2, No murmur Abdomen/GI:Soft, Non tender, Bowel sounds present Extremities/Musculoskeletal:normal inspection, no edema Neurologic/Psych:AAOX3, grossly no focal neurological deficits Skin: normal color, warm Results & Data Results & Data ([facility]) Vital Signs (Past 12 Hours) Vital Signs Pulse Resp BP Pulse Ox O2 Del Method 11/18/22 12:00 69 17 108/60 95 Room Air 11/18/22 10:00 67 21 103/62 97 Room Air 11/18/22 09:45 67 20 113/75 98 Room Air 11/18/22 09:00 76 16 118/64 100 Room Air 11/18/22 08:04 92 H 20 102/58 L 96 Room Air 11/18/22 07:00 120 H 12 117/76 100 Room Air 11/18/22 07:51 122 H 11/18/22 07:00 116 H 21 117/76 99 Room Air 11/18/22 06:45 79 17 102/56 L 96 Room Air 11/18/22 04:00 76 18 95 11/18/22 04:00 120/58 L Laboratory Results Short CBC 11/18/22 Range/Units 04:51 WBC 9.79 (4.8-10.8) K/ul Hgb 12.3 L D (14.0-18.0) g/dl Hct 35.4 L (40.1-51.0) % Plt Count 213 (130-400) K/uL BMP 11/18/22 04:51 Sodium 140 Potassium 3.5 Chloride 109 H Carbon Dioxide 25 BUN 5 L Creatinine 0.99 Glucose 89 Calcium 8.4 L Cardiac Enzymes 11/18/22 Range/Units 04:51 Total Creatine Kinase 257 H (30-223) U/L
[2022-11-19 04:38] LABS: Hematocrit (blood only) 36.6 % (40.1-51.0); Mean Corpuscular Hemoglobin 32.4 pg (25.0-34.0); Mean Corpuscular Hgb Conc 35.5 g/dL (32.0-36.0); Mean Corpuscular Volume 91.3 fL (80.0-100.0); Mean Platelet Volume 10.1 fL (9.4-12.4); Platelet Count 197 K/uL (130-400); RDW Coefficient of Variation 11.3 % (11.5-14.5); RDW Standard Deviation 38.3 fL (36.4-46.3); Red Blood Count 4.01 M/uL (4.63-6.08)
[2022-11-19 05:02] LABS: BUN Creatinine Ratio 6.7 (10-20); Calcium 9.1 mg/dl (8.5-10.1); Est GFR (African American) 136.8 ml/min; Magnesium 1.8 mg/dl (1.7-2.4); Potassium 3.2 mmol/L (3.5-5.1)
[2022-11-19] MEDS ORDERED: POTASSIUM CHLORIDE CRTAB 20 MEQ TABCR PO ONE (08:01)
--- NOTE | 2022-11-19 08:19 | Electrocardiogram Report ---
Test Reason : Blood Pressure : / mmHG Vent. Rate : 057 BPM Atrial Rate : 057 BPM P-R Int : 126 ms QRS Dur : 082 ms QT Int : 388 ms P-R-T Axes : -16 075 069 degrees QTc Int : 377 ms Sinus bradycardia with sinus arrhythmia Minor ST elevation, most consistent with repolarization variant Otherwise normal ECG When compared with ECG of 18-NOV-2022 07:42, Vent. rate has decreased BY 43 BPM Confirmed by Kieran Masters ([id number]) on 11/19/2022 8:19:23 AM Referred By: REFERRED SELF Confirmed By:Kieran Masters
[2022-11-19] MEDS: FOLIC ACID 1 MG TAB PO SCH (08:45)
[2022-11-19] MEDS: THIAMINE HCL 100 MG TAB PO SCH (08:45)
--- NOTE | 2022-11-19 16:35 | Hospitalist Progress Note ---
Date of Service November 19, 2022 Assessment & Plan (1) Isopropyl alcohol poisoning: (2) Alcohol withdrawal: (3) Delirium tremens: Plan: Acute metabolic encephalopathy Likely due to isopropyl alcohol Ingestion Seizure-like activity Isopropyl alcohol poisoning Alcohol withdrawal --EEG:Normal-appearing awake/drowsy EEG. A normal EEG does not completely exclude a diagnosis of epilepsy. Further clinical correlation may be needed. -- Imaging studies reviewed --Tox Screen: Positive for marijuana --Ethylene glycol level pending Poison control consulted: Recommended conservative management Continue thiamine, folic acid Counseled to quit drinking Appreciate neurology, professor of voice input Monitor for alcohol withdrawal Patient currently not interested in alcohol rehab placement Placed on naltrexone 50 mg daily as recommended by psychiatry, patient agrees with the plan (4) Suicidal ideation: (5) Suicide attempt: Plan: Possible Depression Vs Substance Induced Initial 302 paperwork completed in ED. H/O severe depression Denies suicidal thoughts If patient leaves AMA, decision-making capacity should be addressed Currently interested in going to alcohol rehab Appreciate psychiatry input Counseled to quit drinking alcohol (6) Laceration of lip: (7) Laceration of elbow, right: (8) Closed fracture nasal bone: Plan: Sutured in ED -Head CT:No acute intracranial findings. No acute calvarial fracture. Right facial contusion. Acute right nasal bone fracture. -Face CT:No acute facial fracture. -Neck CT:No acute cervical spine fracture or subluxation. Plan DVT Px: SCDs for now Code Status: Full Code Disposition Rehab as able Admission and Anticipated Discharge Date Admission Date: November 17, 2022 Subjective Patient is seen and examined at bedside Soreness of upper lip, right elbow better No new complaints Not interested in inpatient alcohol rehab Discussed with psychiatry today Denies any chest pain, dyspnea, dizziness, nausea, abdominal pain, suicidal thoughts Review of Systems Review of Systems: All systems reviewed & are unremarkable except as noted in Subjective Physical Exam Physical Exam: Physical Exam: Vitals signs as noted above General Appearance:Moderately built and nourished, no apparent distress Head: normocephalic, +traumatic, Upper lip swelling Eyes: normal inspection, EOMI Neck: supple, Trachea midline Respiratory/Chest: Normal breath sounds, CTA, No accessory muscle use Cardiovascular: S1, S2, No murmur Abdomen/GI:Soft, Non tender, Bowel sounds present Extremities/Musculoskeletal:normal inspection, no edema Neurologic/Psych:AAOX3, grossly no focal neurological deficits Skin: normal color, warm, +elbow, lip sutures Results & Data Results & [facility] ([facility]) Vital Signs (Past 12 Hours) Vital Signs Temp Pulse Resp BP Pulse Ox O2 Del Method 11/19/22 15:57 36.8 C 61 18 105/65 97 Room Air 11/19/22 12:00 36.5 C 82 20 120/70 100 Room Air 11/19/22 08:52 70 12 110/59 L 99 Room Air Laboratory Results Short CBC 11/19/22 Range/Units 04:23 WBC 10.30 (4.8-10.8) K/ul Hgb 13.0 L (14.0-18.0) g/dl Hct 36.6 L (40.1-51.0) % Plt Count 197 (130-400) K/uL BMP 11/19/22 04:23 Sodium 139 Potassium 3.2 L Chloride 107 Carbon Dioxide 27 BUN 6 Creatinine 0.89 Glucose 107 H Calcium 9.1
[2022-11-19 21:52] LABS: Marijuana Quant, GCMS Urine 31 ng/mL (<5)
[2022-11-20 07:31] LABS: BUN Creatinine Ratio 8.3 (10-20); Calcium 9.2 mg/dl (8.5-10.1); Creatinine Clr Calc Pharmacy 118.5 ml/min; Est GFR (African American) 149.2 ml/min; Est GFR (Non-African American) 128.7 ml/min; Potassium 3.5 mmol/L (3.5-5.1)
[2022-11-20] MEDS ORDERED: NALTREXONE HCL 50 MG TAB PO SCH (09:00)
[2022-11-20] MEDS: THIAMINE HCL 100 MG TAB PO SCH (09:57)
[2022-11-20] MEDS: FOLIC ACID 1 MG TAB PO SCH (09:57)
--- NOTE | 2022-11-20 12:21 | Hospitalist Progress Note ---
Date of Service November 20, 2022 Assessment & Plan (1) Isopropyl alcohol poisoning: (2) Alcohol withdrawal: (3) Delirium tremens: Plan: Acute metabolic encephalopathy Likely due to isopropyl alcohol Ingestion Seizure-like activity Isopropyl alcohol poisoning Alcohol withdrawal --EEG:Normal-appearing awake/drowsy EEG. A normal EEG does not completely exclude a diagnosis of epilepsy. Further clinical correlation may be needed. -- Imaging studies reviewed --Tox Screen: Positive for marijuana --Ethylene glycol level pending Poison control consulted: Recommended conservative management Continue thiamine, folic acid Counseled to quit drinking Appreciate neurology, airport ramp agent input Monitor for alcohol withdrawal Patient currently not interested in alcohol rehab placement Placed on naltrexone 50 mg daily as recommended by psychiatry, patient agrees with the plan Advised to get blood test (comprehensive metabolic panel) in 1 week to monitor LFTs, electrolytes Advised to follow-up with psychiatry upon discharge (4) Suicidal ideation: (5) Suicide attempt: Plan: Possible Depression Vs Substance Induced Initial 302 paperwork completed in ED. H/O severe depression Denies suicidal thoughts If patient leaves AMA, decision-making capacity should be addressed Currently interested in going to alcohol rehab Appreciate psychiatry input Counseled to quit drinking alcohol (6) Laceration of lip: (7) Laceration of elbow, right: (8) Closed fracture nasal bone: Plan: Sutured in ED -Head CT:No acute intracranial findings. No acute calvarial fracture. Right facial contusion. Acute right nasal bone fracture. -Face CT:No acute facial fracture. -Neck CT:No acute cervical spine fracture or subluxation. Plan DVT Px: SCDs for now Code Status: Full Code Disposition Home Admission and Anticipated Discharge Date Admission Date: November 17, 2022 Subjective Patient is seen and examined at bedside Soreness of upper lip, right elbow resolved No other complaints Denies any chest pain, dyspnea, dizziness, nausea, abdominal pain, suicidal/homicidal thoughts Plan to discharge home today Review of Systems Review of Systems: All systems reviewed & are unremarkable except as noted in Subjective Physical Exam Physical Exam: Physical Exam: Vitals signs as noted above General Appearance:Moderately built and nourished, no apparent distress Head: normocephalic, +traumatic, Upper lip swelling Eyes: normal inspection, EOMI Neck: supple, Trachea midline Respiratory/Chest: Normal breath sounds, CTA, No accessory muscle use Cardiovascular: S1, S2, No murmur Abdomen/GI:Soft, Non tender, Bowel sounds present Extremities/Musculoskeletal:normal inspection, no edema Neurologic/Psych:AAOX3, grossly no focal neurological deficits Skin: normal color, warm, +elbow, lip sutures Results & Data Results & Data ([facility]) Vital Signs (Past 12 Hours) Vital Signs Temp Pulse Pulse Resp BP BP Pulse Ox 11/20/22 11:02 37.5 C 55 L 20 109/68 98 11/20/22 07:32 37.1 C 70 19 129/79 100 11/20/22 06:18 99 H 11/20/22 03:16 37.3 C 56 L 16 126/76 100 O2 Del Method 11/20/22 11:02 Room Air 11/20/22 07:32 Room Air 11/20/22 06:18 11/20/22 03:16 Room Air Laboratory Results [facility] 11/20/22 06:33 Sodium 138 Potassium 3.5 Chloride 105 Carbon Dioxide 28 BUN 6 Creatinine 0.72 Glucose 87 Calcium 9.2
--- NOTE | 2022-11-20 12:28 | Discharge Summary ---
Date of Service November 20, 2022 Admission HPI Per Admitting Provider Selwyn is a 27-year-old -[place] male that presented to the [facility] with his mom (main person for ROS and conversation) for evaluation of altered mental status that was reported after his parents were getting ready for work this morning and Selwyn walked up from the basement naked, inattentive, stumbling and not conversing or answering questions. Selwyn has been struggling with alcohol addiction for the past few years. Most recently, he had lost his job over and moved in with his parents and with the holidays had increased alcohol consumption. Patients mother states that when her and her went downstairs there was blood in the basement and his bed was full of vomit. Patient notably drinks about 10 high percentage beers per day. His mother reports that she thinks that he drank about 2 cups of rubbing alcohol from a bottle that she had used for cleaning. Confirmed no guns are in the household. Previously, this patient has been admitted at an inpatient psych facility in May 2020 where he was admitted for severe depression and also was diagnosed with schizophrenia (not on any medications). Mom does not remember which facility he was He was traumatized from this admission as he was unable to see his family and friends. After this admission, he did have a suicide attempt with ASA consumption and had a knife that he did not use. Additional past medical history includes suicidal attempt, alcohol abuse, schizophrenia, and ischemic priapism. Chest x-ray negative; head CT negative. Face CT reveals right nasal bone fracture. He does have a lip laceration and also has an elbow laceration that was sutured in the ED. WBC 18.04 likely in setting of sress, osmolality 335, osmolar gap 50. AG is closed at 10, VBG pH 7.38, CO2 41, HCO3 24. Mild hypokalemia, replace with K+ rider x1. Tylenol and aspirin levels normal. Poison control contacted at and based on isopropyl alcohol OD recommend supportive care. In the ED, patient somnolent and then wakes with increased agitation and tachycardia (up to 170's) Patient does intermittently wake and say his name and answers yes/no; however, is non-focal with any communication. He did have a EEG for possible seizure activity with neurology consult. EKG shows ST . In the ED, he received a banana bag with additional dose of Thiamine. 1LNSB infusing. Per protocol received a total of 6mg of Ativan over 3 hours. I was able to talk with Mairanne at [employer] who stated that she thinks he is outside of the window for rubbing alcohol withdrawl and believes this is a straight fcus on withdrawl symptoms and seizure activity. Continue IV fluids and treating withdrawl symptoms in ICU. Suggest patient be transfered to ICU as patient having increased periods of agitation with tachycardia and possible seizure activity. Additionally feel he should have a closer nurse/patient ratio for monitoring. Patient will be admitted to the ICU for further evaluation and management. Case discussed in depth with Dr. Rosas and also with Ricardo Coello PA-C. Please see A/P for further details. Admission Exam Per Admitting Provider Physical Exam Physical Exam: Neuro: AAOx1, periods of somnolence vs agitation. Non-focal gaze with communication. PERRLA HEENT: head normocephalic, moist mucus membranes CV: S1/S2, tachycardia (-) M/G/R, (-) edema, cap refill < 3 seconds Resp: Lungs CTA in all loera. On RA GI: Abdomen S/NT/ND, Ax4 bowel sounds, Musculoskeletal: 5/5 UE extremity Skin: (-) rashes , (-) erythema. Psych: somnolent and agitated mood Principal Diagnosis Isopropyl alcohol poisoning Acute metabolic encephalopathy Depression Laceration of hip, right elbow Discharge Data Allergies Allergy/AdvReac Type Severity Reaction Status Date / Time shellfish derived Allergy Severe Anaphylaxis Verified 11/17/22 14:03 Consultations 11/17/22 11:36 ED Decision to Admit Stat 11/17/22 11:53 Consult Neurology Routine 11/17/22 12:04 Consult Psychiatry Routine 11/17/22 12:44 Consult Burr Bench Hand Routine 11/17/22 16:16 Consult Behavioral Health Liaison Routine Procedures Performed Laboratory Results WBC 10.30 K/ul (4.8-10.8) 11/19/22 04:23 RBC 4.01 M/uL (4.63-6.08) L 11/19/22 04:23 Hgb 13.0 g/dl (14.0-18.0) L 11/19/22 04:23 Hct 36.6 % (40.1-51.0) L 11/19/22 04: MCV 91.3 fL (80.0-100.0) 11/19/22 04: MCH 32.4 pg (25.0-34.0) 11/19/22 04: MCHC 35.5 g/dL (32.0-36.0) 11/19/22: RDW Std Deviation 38.3 fL (36.4-46.3) 11/19/22: RDW Coeff of Janie 11.3 % (11.5-14.5) L 11/19/22 04: Plt Count 197 K/uL (130-400) 11/19/22: MPV 10.1 fL (9.4-12.4) 11/19/22 04: Immature Gran % (Auto) 0.5 % 11/17/22 09:00 Neut % (Auto) 89.7 % 11/17/22 09:00 Lymph % (Auto) 4.1 % 11/17/22 09:00 Perkins % (Auto) 5.5 % 11/17/22 09:00 Eos % (Auto) 0.0 % 11/17/22 09:00 Baso % (Auto) 0.2 % 11/17/22 09:00 Neut # (Auto) 16.17 K/uL (1.4-6.5) H 11/17/22 09:00 Lymph # (Auto) 0.74 K/uL (1.2-3.4) L 11/17/22 09:00 Perkins # (Auto) 1.00 K/uL (0.24-0.82) H 11/17/22 09:00 Eos # (Auto) 0.00 K/uL (0-0.50) 11/17/22 09:00 Baso # (Auto) 0.04 K/uL (0-0.2) 11/17/22 09:00 Immature Gran # (Auto) 0.09 K/uL (0.00-0.02) H 11/17/22 09:00 PT 11.7 Seconds (9.0-12.0) 11/17/22 09:00 INR 1.1 (0.9-1.1) 11/17/22 09:00 VBG pH 7.38 (7.36-7.41) 11/17/22 10:09 VBG pCO2 41 mmHg (38-50) 11/17/22 10:09 VBG pO2 60 mmHg 11/17/22 10:09 VBG HCO3 24 mmol/L 11/17/22 10:09 VBG O2 Saturation 90.7 % 11/17/22 10:09 VBG Base Excess -0.8 mEq/L 11/17/22 10:09 Sodium 138 mmol/L (136-145) 11/20/22 06:33 Potassium 3.5 mmol/L (3.5-5.1) 11/20/22 06:33 Chloride 105 mmol/L (98-107) 11/20/22 06:33 Carbon Dioxide 28 mmol/L (21-32) 11/20/22 06:33 Anion Gap 5 (3-11) 11/20/22 06:33 BUN 6 mg/dl (6-23) 11/20/22 06:33 Creatinine 0.72 mg/dl (0.6-1.4) 11/20/22 06:33 Est Cr Clr Drug Dosing 118.5 ml/min 11/20/22 06:33 Est GFR ( Amer) 149.2 ml/min 11/20/22 06:33 Est GFR (Non-Af Amer) 128.7 ml/min 11/20/22 06:33 BUN/Creatinine Ratio 8.3 (10-20) L 11/20/22 06:33 Glucose 87 mg/dl (70-99(Fasting)) 11/20/22 06:33 POC Glucose 101 mg/dl (70-99) H 11/19/22 11:27 Osmolality 335 mOsm/kg (280-300) H 11/17/22 09:00 Calcium 9.2 mg/dl (8.5-10.1) 11/20/22 06:33 Magnesium 1.8 mg/dl (1.7-2.4) 11/19/22 04:23 Total Bilirubin 0.3 mg/dl (0.2-1.0) 11/17/22 09:00 AST 22 U/L (13-39) 11/17/22 09:00 ALT 18 U/L (7-52) 11/17/22 09:00 Alkaline Phosphatase 56 U/L (34-104) 11/17/22 09:00 Total Creatine Kinase 257 U/L (30-223) H 11/18/22 04:51 Troponin I High Sens 2.9 pg/ml (0-20) 11/17/22 12:26 Total Protein 7.6 gm/dl (6.0-8.3) 11/17/22 09:00 Albumin 4.5 gm/dl (3.4-5.0) 11/17/22 09:00 Globulin 3.1 gm/dl (2.5-4.0) 11/17/22 09:00 Albumin/Globulin Ratio 1.5 (0.9-2) 11/17/22 09:00 Lipase 49 U/L (11-82) 11/17/22 09:00 Urine Color Yellow 11/17/22 Unknown Urine Appearance Clear (Clear) 11/17/22 Unknown Urine pH 6.0 (4.5-7.5) 11/17/22 Unknown Ur Specific [place] 1.008 (1.000-1.030) 11/17/22 Unknown Urine Protein Negative (Negative) 11/17/22 Unknown Urine Glucose (UA) Negative (Negative) 11/17/22 Unknown Urine Ketones Negative (Negative) 11/17/22 Unknown Urine Blood Negative (Negative) 11/17/22 Unknown Urine Nitrite Negative (Negative) 11/17/22 Unknown Urine Bilirubin Negative (Negative) 11/17/22 Unknown Urine Urobilinogen Negative (Negative) 11/17/22 Unknown Ur Leukocyte Esterase Negative (Negative) 11/17/22 Unknown Urine Osmolality 274 mOsm/kg (500-800) L 11/17/22 Unknown Nasal Screen MRSA (PCR) Negative (Negative) 11/17/22 15:00 Salicylates < 3.0 mg/dl (3.0-30) L 11/17/22 09:00 Urine Opiates Screen Neg (Neg) 11/17/22 Unknown Ur Methadone, Qual Neg (Neg) 11/17/22 Unknown Acetaminophen < 3 ug/ml (10-30) L 11/17/22 09:00 Urine Barbiturates Neg (Neg) 11/17/22 Unknown Ur Phencyclidine (PCP) Neg (Neg) 11/17/22 Unknown U Amphetamin/Meth Scrn Neg (Neg) 11/17/22 Unknown MDMA (Ecstasy) Screen Neg (Neg) 11/17/22 Unknown U Benzodiazepines Scrn Neg (Neg) 11/17/22 Unknown Ur Cocaine Metabolite Neg (Neg) 11/17/22 Unknown U Marijuana (THC) Screen Pos (Neg) H 11/17/22 Unknown U Marijuana THC Carboxy 31 ng/mL (<5) H 11/17/22 Unknown Drug Screen Comment SEE NOTE 11/17/22 Unknown Ethyl Alcohol mg/dL < 10.0 mg/dl (<10.0) 11/17/22 09:00 SARS-CoV-2, RNA, NAAT NEGATIVE (NEGATIVE) 11/17/22 Unknown Impressions Chest X-Ray 11/17/22 09:10 XR chest 1V portable CLINICAL HISTORY: overdose COMPARISON STUDY: No previous studies for comparison. FINDINGS: Exam is compromised given difficulty positioning. Lung volumes are normal. Lungs are clear. There is no pneumothorax or pleural effusion. Cardiac size is normal. Mediastinal contours are normal. There is no evidence for pulmonary edema. IMPRESSION: No acute cardiopulmonary findings. ACT 112: Negative or not required by law. Electronically signed by: Lavon Clark M.D. 11/17/2022 10:[address] 11/17/22 09:14 CT OF THE CERVICAL SPINE WITHOUT CONTRAST CLINICAL HISTORY: AMS pain COMPARISON STUDY: No previous studies for comparison. TECHNIQUE: Helical axial images of the cervical spine were obtained without IV contrast. Sagittal and coronal reconstructions were viewed. Automated exposure control was utilized for the study. A dose lowering technique was utilized adhering to the principles of ALARA. FINDINGS: Alignment of the cervical spine is anatomic. Vertebral body heights are maintained. No acute cervical spine fracture or subluxation is present. There is no prevertebral edema. Facet joints are intact. IMPRESSION: No acute cervical spine fracture or subluxation. ACT 112: Negative or not required by law. Electronically signed by: Lavon Clark M.D. 11/17/2022 11:[address] 11/17/22 09:14 CT OF THE HEAD WITHOUT CONTRAST CLINICAL HISTORY: Altered mental status. COMPARISON STUDY: No previous studies for comparison. TECHNIQUE: Helical axial images of the head were obtained without IV contrast. Automated exposure control was utilized for the study. A dose lowering technique was utilized adhering to the principles of ALARA. FINDINGS: No acute intracranial hemorrhage, midline shift or mass effect is present. The ventricular system is unremarkable. The basal cisterns are patent. No extra-axial collections are present. There are no findings to suggest acute dural sinus thrombosis or acute territorial infarct. No significant calvarial abnormalities are present. Visualized portions of the sinuses and mastoid air cells are clear. Right nasal contusion is present. There is an acute fracture of the right nasal bone. This is better depicted on the maxillofacial CT. IMPRESSION: 1. No acute intracranial findings. 2. No acute calvarial fracture. 3. Right facial contusion. Acute right nasal bone fracture. ACT 112: Negative or not required by law. Electronically signed by: Lavon Clark M.D. 11/17/2022 11:[address] 11/17/22 09:15 CT facial bones wo con CLINICAL HISTORY: trauma TECHNIQUE: Multidetector row helical CT of the maxillofacial bones was performed without administration of intravenous contrast, and processed with bone and soft tissue algorithms. Coronal and sagittal reformations were obtained. Automated dose lowering techniques and/or adjustment according to patient size were utilized for this exam. CT DOSE: 1248.17 mGy.cm Comparison: None available at the time of this dictation. FINDINGS: There is an acute fracture of the right nasal bone. Soft tissue swelling is seen. The mandible is intact. The temporomandibular joints are anatomically aligned. Pterygoid plates are intact. Zygomatic arches are intact. The globes are normal and symmetric, without proptosis, obvious disruption or lens dislocation. There is no orbital radiopaque foreign body. The orbital nova are intact. The retrobulbar fat is without evidence of disruption. Ex traocular muscles are normal and symmetric. Optic nerve sheath complexes are normal in course and caliber. There is a fracture of the right nasal bone with surrounding soft tissue swelling. IMPRESSION: No acute facial fracture. ACT 112: Negative or not required by law. Electronically signed by: Ian Thomas M.D. 11/17/2022 11:10 AM Ordered Studies 11/17/22 09:14 CT cervical spine wo con Stat CT head/brain wo con Stat 11/17/22 09:15 CT face [CT facial bones wo con] Stat Hospital Course (1) Isopropyl alcohol poisoning: (2) Alcohol withdrawal: (3) Delirium tremens: Acute metabolic encephalopathy Likely due to isopropyl alcohol Ingestion Seizure-like activity Isopropyl alcohol poisoning Alcohol withdrawal --EEG:Normal-appearing awake/drowsy EEG. A normal EEG does not completely exclude a diagnosis of epilepsy. Further clinical correlation may be needed. -- Imaging studies reviewed --Tox Screen: Positive for marijuana --Ethylene glycol level pending Poison control consulted: Recommended conservative management Continue thiamine, folic acid Counseled to quit drinking Appreciate neurology, river transportation worker input Monitor for alcohol withdrawal Patient currently not interested in alcohol rehab placement Placed on naltrexone 50 mg daily as recommended by psychiatry, patient agrees with the plan Advised to get blood test (comprehensive metabolic panel) in 1 week to monitor LFTs, electrolytes Advised to follow-up with psychiatry upon discharge (4) Suicidal ideation: (5) Suicide attempt: Possible Depression Vs Substance Induced Initial 302 paperwork completed in ED. H/O severe depression Denies suicidal thoughts If patient leaves AMA, decision-making capacity should be addressed Currently interested in going to alcohol rehab Appreciate psychiatry input Counseled to quit drinking alcohol (6) Laceration of lip: (7) Laceration of elbow, right: (8) Closed fracture nasal bone: Sutured in ED -Head CT:No acute intracranial findings. No acute calvarial fracture. Right f acial contusion. Acute right nasal bone fracture. -Face CT:No acute facial fracture. -Neck CT:No acute cervical spine fracture or subluxation. Plan DVT Px: SCDs for now Code Status: Full Code Disposition Home Total Time Total Time Spent Total Time Spent (In Minutes): 50 minutes Discharge Plan Discharge Items Patient Disposition: Home - Self-Care Reason For Visit: ETOH OVERDOSE Discharge Diagnosis: Isopropyl alcohol poisoning Acute metabolic encephalopathy Depression Laceration of hip, right elbow Activity: Per Instructions section Exercise/Sports: Gradually increase as tolerated Non-emergency contact: Primary Care Provider and Psychiatrist Call non-emergency contact if: you have any medication questions, your symptoms worsen, your pain is concerning for you, you have a fever, your wound has increa sed redness, your wound has increased drainage and your wound pain has increased Follow-up/Referrals: PCP,NO [Primary Care Provider] - Diet: Regular Addtl Attending Provider Instructions: Follow-up with your primary care physician in 1 week Follow-up with your psychiatrist in 1 week as well -- Quit drinking alcohol as advised -- Get blood test (comprehensive metabolic panel) in 1 week to monitor your liver enzymes, electrolytes and follow-up with your primary care physician with results -- Get sutures removed as per recommendations from your primary care physician. Seek immediate medical attention if your symptoms reoccur or worsen Please take all medications as instructed on discharge list below. Please call if you have any questions or problems. You can reach a [facility] hospitalist on duty at [facility] 24 hours a day by calling [phone] Pending Studies at Discharge: No Stand-Alone Forms: My [facility], Smoking Cessation Medications and DC Order Prescriptions: New naltrexone 50 mg Tablet 50 mg PO DAILY Qty: 30 0RF thiamine HCl (vitamin B1) 100 mg Tablet 100 mg PO QAM Qty: 30 0RF folic acid 1 mg Tablet 1 mg PO QAM Qty: 30 0RF No Action No Known Home Medications Discharge Orders: Discharge Order (Routine); Ordered 11/20/22 Ordered By: Hadley Kiran Admission Data Admit Date/Time: 11/17/22 11:49 Attending Provider: Hadley Kiran Admit Provider: Barbra Campuzano Primary Care Provider: PCP,NO Other Providers: Barbra Campuzano ; Ronaldo Heard ; Izabella Fitzpatrick ; Syl Hathaway ; Oscar Rosas
== END 2022-11-20 13:50 | disposition home or self-care (01) | DRG 917 ==
LOC: ED 08:35 → 1E 11:49 → SUATTDRO 11:49 → 1E 14:47 → 2S 11-19 23:06